=== PATIENT | female | born 1945 | race Caucasian/White ===

== ENCOUNTER 2018-06-10 00:09 | Inpatient (IN) | payer MEDICARE, MEDICAID, SELFPAY ==
[2018-06-10] VITALS (24 sets, daily range): BP systolic 96–164; BP diastolic 50–87; PULSE 68–96; RESP 16–20; TEMP 36.2–36.8; O2SAT 85–96; BMI 26.2
--- NOTE | 2018-06-10 00:20 | RAD_ITS ---
STUDY: X-RAY CHEST REASON FOR EXAM: Female, 72 years old. Status post fall. Right hip pain. TECHNIQUE: 2 AP portable views of the chest were obtained. The patient is rotated to the right on both views. COMPARISON: 05/07/2016. FINDINGS: There is mild chronic elevation of the right hemidiaphragm. There is a new focus of atelectasis or fibrosis in the right lung base. In general, the lungs are hyperexpanded, consistent with COPD.. There is no demonstrated pleural abnormality. Normal size heart. Normal mediastinum and jin. Normal visualized pulmonary arteries. There is atherosclerotic calcification of the aortic arch with tortuosity. There are multilevel degenerative changes of the visualized thoracic spine. Normal visualized ribs, clavicles, and shoulders. There is no demonstrated abnormality of the visualized soft tissue structures of the upper abdomen. RAD/Chest 1 View IMPRESSION: COPD. New focus of atelectasis or fibrosis overlying the right lung base. No demonstrated pulmonary airspace infiltrate. Electronically Signed: Luis Armando Mejias MD at 1:32 EST , Service support ,
--- NOTE | 2018-06-10 00:20 | RAD_ITS ---
STUDY: X-RAY - PELVIS AND RIGHT HIP REASON FOR EXAM: Female, 72 years old. Status post fall. Right hip pain. TECHNIQUE: 3 views of the pelvis and hip. COMPARISON: None. FINDINGS: There is a non-specific bowel gas pattern. Normal visualized soft tissue structures. Normal bilateral iliac wings, sacroiliac joints and visualized sacrum. Normal bilateral superior and inferior pubic rami. Normal pubic symphysis. Normal bilateral ischial tuberosities. There is an acute traumatic right subcapital femoral neck fracture with angulation convex anterolaterally. Otherwise normal femoral head. Normal acetabulum. Normal hip joint. RAD/HIP, UNI W/ Pelvis 2-3 Views IMPRESSION: Angulated right subcapital femoral neck fracture. No demonstrated pelvic fracture Electronically Signed: Luis Armando Mejias MD at 1:34 EST , Service support ,
[2018-06-10] MEDS: fentaNYL 100 MCG/2 ML Ampul 50 MCG IM (00:30)
[2018-06-10] MEDS: Ondansetron 4 MG/2 ML Vial IV (01:10)
[2018-06-10] MEDS: Morphine 4 MG/ML Syringe IV (01:10)
[2018-06-10 01:21] LABS: Absolute Lymphocyte Count 2.67 X10^3/ul (0.83-4.51); Absolute Neutrophil Count 6.8 X10^3/uL (2.0-7.7); Basophil# 0.04 X10^3/uL; Basophil% 0.4 % (0-1); Eosinophil# 0.13 X10^3/uL; Eosinophils% 1.2 % (0-5); Hematocrit 45.5 % (37-47); Hemoglobin 14.4 g/dl (12.0-15.0); Lymphocyte # 2.67 X10^3/ul (4.0); Mean Corp Hgb Conc 31.6 g/gl (32-36); Mean Corpuscular Hgb 32.1 pg (27.0-32.0); Mean Corpuscular Volume 101.6 fL (81-99); Mean Platelet Vol. 9.3 fl (6.2-12.0); Monocyte# 1.06 X10^3/uL; Monocyte% 9.9 % (0-10); Neutrophil # 6.76 X10^3/uL (2.7-7.7); Neutrophil % 63.3 % (47-70); POSITIVE COUNT NO; POSITIVE DIFFERENTIAL NO; POSITIVE MORPHOLOGY NO; Platelet Count 241 K/mm3 (150-450); RBC Distribution Width CV 13.2 % (11.6-14.6); RBC Distribution Width SD 49.2 fl (35.1-43.9); Red Blood Count 4.48 M/mm3 (4.2-5.4); White Blood Count 10.7 K/mm3 (4.4-11.0)
[2018-06-10 01:37] LABS: Anion Gap 9 (5-15); BUN 10 mg/dL (7-18); BUN/Creat Ratio 10.6 RATIO (10-20); Calcium,Total 8.4 mg/dL (8.5-10.1); Chloride 104 mmol/L (98-107); Creatinine, Serum 0.94 mg/dL (0.55-1.02); EST Glomerular Filtration Rate 62 mL/min (>60); Est Glom Filt Rate - Afr Amer 75 mL/min (>60); Estimated Creatinine Clearance 61.34 ml/min; Glucose 120 mg/dL (74-106); Potassium 3.8 mmol/L (3.5-5.1); Sodium Level 139 mmol/L (136-145)
--- NOTE | 2018-06-10 01:56 | ED.VISSUMM ---
- ER Visit Summary Date of Service: 06/10/18 Chief Complaint: Fall History of Present Illness: The patient is a [address] Olson. She reports that tonight she lost her balance and fell off the porch. States that she has pain in her right hip that is 10 out of 10 severity and she was unable to bear weight. No blow to the head or loss of consciousness. She is not on any blood thinners. No neck, back, shoulder, wrist, or left hip pain. Review of systems: General: No fever, chills, cold sweats. Cardiovascular: No chest pain, palpitations. Respiratory: No cough, shortness of breath, dyspnea on exertion. Gastrointestinal: No abdominal pain, nausea, vomiting, diarrhea, melena, or hematochezia. Genitourinary: No dysuria, frequency, hematuria. Skin: No rash. Neuro: No headache, numbness, weakness. Physical Examination: Vitals: Stable. Afebrile. Neck: No vertebral tenderness. Full ROM without difficulty. Cleared by NEXUS criteria. Back: No vertebral tenderness. General: A&O x 3. NAD. Cardiovascular exam: Regular rate and rhythm, no murmur, rub or gallop. Respiratory exam: Chest nontender. No crepitus. Clear to auscultation bilaterally. No wheezes or stridor. Abdominal exam: Soft, nontender, nondistended, normal bowel sounds. No pain in RUQ or LUQ specifically. No peritoneal signs. Extremity: Right leg is shortened and externally rotated. She has normal sensation to light touch in her foot. Test Results: X-ray shows a subcapital right hip fracture. Chest x-ray shows chronic changes. EKG is sinus at [address] changes. CBC is more for white count of 14 segment neutrophils 84. Chem-7 is more for BUN of 38, creatinine 1.53, glucose 135. Emergency Department Course and Treatment: Patient was initially treated with a dose of fentanyl IM. When the x-ray returned she had an IV placed was given morphine IV. She is resting comfortably. She did have a Beavers catheter placed for her comfort. Treatment Plan: The patient was discussed with Dr. Milton Cason and Dr. Shearer. She will be admitted to the hospital for further evaluation and treatment. Disposition: Admitted in improved condition. Impression: 1. Right hip fracture. This note was generated with [employer] dictation software. It may contain incorrect words, spelling, and punctuation that were not noted in review of the chart prior to signing ED Disposition - Plan for ED Patient: Chief Complaint: Fall Referrals: Mirna Olson MD [Primary Care Provider] -
--- NOTE | 2018-06-10 02:50 | PCM.HP.STD ---
History of Present Illness Date of Admission: 06/10/18 Chief Complaint: pain in right hip after fall The patient is a 72 year old F past medical history of COPD. She was admitted through the ED on 06/10/2018 with a complaint of right hip pain after sustained a fall. Patient states she was stepping off of porch and tripped and fell on her right hip. Subsequently noted severe pain and could not weight-bear or move the right hip. She was therefore brought to the ED. She denied any fever chills, cough or chest pain, shortness of breath, any diarrhea or vomiting. [] She does complain of abdominal pain which was mainly epigastric and sharp and she said was due to heartburn as she has had it in the past. In the ED, vitals were significant for blood pressure of 164/74 was otherwise normal. Chemistry was significant for calcium of 8.4. CBC showed macrocytosis and hypochromia but hemoglobin was 14.4.EKG done showed no acute ST changes and showed normal sinus rhythm. X-ray of the right hip showed acute right traumatic subcapital femoral neck fracture with angulation and no demonstrated pelvic fracture. She is been admitted to be managed for right hip fracture due to mechanical fall. She is to have surgery early tomorrow morning per orthopedic surgery. Past Medical History Past Medical History (Chronic Problems): Chronic Problems COPD (chronic obstructive pulmonary disease) (Chronic) Smoking addiction (Chronic) PVD (peripheral vascular disease) (Chronic) Allergies No Known Allergies Allergy (Verified 06/10/18 00:10) Home Medications: Ambulatory Orders Medication Instructions Recorded Albuterol Inhaler [Ventolin Hfa 2 puff INHALATION Q4H PRN PRN 08/17/16 (SP)] Aspirin [Aspirin, Baby] 81 mg PO DAILY@0800 08/17/16 Ibuprofen 200 mg PO Q6H PRN PRN 06/10/18 Surgical History: cholecystectomy Psychiatric History: No pertinent psych hx [employer] History: No pertinent [employer] history Lives: With Family Smoking Status: Former smoker - quit 3 weeks ago; was smoming ~ 1/2 pack daily for ~ 40 years Tobacco Use: Cigarettes Alcohol: Occasional Drugs: None - *Family History Maternal History Items: Heart Disease, Hypertension, - Review of Systems Constitutional: Denies: Chills, Fever, Weight Change HEENT: Denies: Head Aches, Sinus Congestion, Sinus Drainage Cardiovascular: Denies: Chest Pain, Chest Pressure, Chest Tightness, Heaviness, Light Headedness, Orthopnea, Palpitations Respiratory: Denies: Cough, Shortness of breath at rest, Sputum production Gastrointestinal: Reports: Abdominal Pain - epigastric pain, Melena. Denies: Diarrhea, Dyspepsia, Hematemesis, Nausea, Vomiting Genitourinary: Denies: Dysuria Musculoskeletal: Reports: Joint Pain - right hip pain. Denies: Arm Pain, Foot Pain, Hand Pain Skin: Denies: Rash, Wounds Neurological: Denies: Numbness, Tingling, Focal weakness Psychiatric: Denies: Anxiety, Depression, Homicidal Ideations, Suicidal Ideations Hematologic/ Lymphatic: Denies: Easy Bruising, Easy Bleeding VTE Information - Inpt Only VTE Present on Admission: No VTE Pharm Prophylaxis ordered?: Yes - Physical Exam General: Alert, Oriented x3, Cooperative, No apparent distress HEENT: Atraumatic, PERRLA, EOMI, Normocephalic Oral: Moist Mucosa Neck: Supple, No JVD, Negative Carotid Bruits Lungs: Clear to auscultation, Normal air movement, No rhonchi, No wheeze, No rales Cardiovascular: Regular rate, Regular Rhythm, Normal S1, Normal S2, No murmurs Abdomen: Bowel Sounds Present, Soft, Tender - mild epigastric tenderness, no guarding or rebound tenderness Extremities: - - RLE shortened, externally rotated. Unable to straighten the right leg due to severe pain Skin: No rashes, No breakdown Musculoskeletal: No Tenderness to Palpation of Joints or Extremities, Tenderness - pain on palpation over right hip Lymphatic: No Cervical, Supraclavicular, or Inguinal Adenopathy Neurological: Cranial nerves II-XII grossly intact, Neuro grossly intact Psych/Mental Status: Normal Affect, Appropriate, Alert and oriented to time, place, person, mood and affect Vital Signs Temp Pulse Resp BP Pulse Ox 97.7 F L 69 18 164/74 H 93 06/10/18 00:11 06/10/18 00:11 06/10/18 00:11 06/10/18 00:11 06/10/18 00:11 Oxygen Delivery Method Room Air Weight: 160 lb 11.472 oz Body Mass Index (BMI) 0.2 Finger Stick Blood Glucose 117 Laboratory Tests Past 24 Hrs 06/10/18 06/10/18 01:10 01:10 WBC 10.7 RBC 4.48 Hgb 14.4 Hct 45.5 MCV 101.6 H MCH 32.1 H MCHC 31.6 L RDW 13.2 RDW Differential 49.2 H Plt Count 241 MPV 9.3 Immature Gran % (Auto) 0.200 Neut % (Auto) 63.3 Lymph % (Auto) 25.0 [place] % (Auto) 9.9 Eos % (Auto) 1.2 Baso % (Auto) 0.4 Absolute Neuts (auto) 6.8 Absolute Lymphs (auto) 2.67 Total Counted Not Reportable Sodium 139 Potassium 3.8 Chloride 104 Carbon Dioxide 26.0 Anion Gap 9 BUN 10 Creatinine 0.94 Estim Creat Clear Calc 61.34 Est GFR (MDRD) Af Amer 75 Est GFR (MDRD) Non-Af 62 BUN/Creatinine Ratio 10.6 Glucose 120 H Calcium 8.4 L Diagnostic Data Chest X-Ray 06/10/18 00:20 IMPRESSION: COPD. New focus of atelectasis or fibrosis overlying the right lung base. No demonstrated pulmonary airspace infiltrate. Electronically Signed: Luis Armando Mejias MD at 1:32 EST , Service support , Hip/Pelvis X-Ray 06/10/18 00:20 IMPRESSION: Angulated right subcapital femoral neck fracture. No demonstrated pelvic fracture Electronically Signed: Luis Armando Mejias MD at 1:34 EST , Service support , Assessment/Plan All Active Problems Metabolic acidosis (Acute) Metabolic encephalopathy (Acute) 72-year-old female presenting with complaint of right hip pain after mechanical fall. 1. Acute right traumatic femoral neck fracture after mechanical fall tripped and fell off her porch XR showed acute traumatic right subcapital femoral neck fracture with angulation admit to [facility] surg orthopedic surgery consult keep NPO for surgery in the morning EKG showed no acute ST changes CXR showed no new focus of atelectasis or fibrosis in right lung base; otherwise normal IV toradol and morphine for pain hydrate with IVF NS RCRI index is 0, indicating 0.4% risk of major cardiac event with surgery. Patient can proceed for surgery with mild to moderate risk based on RCRI score oral vitamin D 100mg daily 2. Abdominal pain, due to reflux complains of epigastric pain which started this evening after admission says she has a history or GERD,and this is how it presents give IV PPI and IV morphine will check troponins and lipase 3. COPD: quit smoking 3 weeks ago; smoked ~ 1/2 pack daily for many years. Lungs clear to auscultation. CXR findings as under 1. Continue inhalers. Duonebs prn. incentive spirometry after surgery 4. History of peripheral vascular disease: on aspirin. 5. History of superficial thrombosis daughter says she thinks patient may have had a clot in her UE last year when she was admitted at [facility] after being transferred there from [facility] o/a of renal failure. Upon further enquiry, it appears it was a superficial thrombosis from IV insertion, as she says the use of the affected arm was restricted, and pateint was not given any prolonged anticoagulation for 3-6 months; she only received DVT prophylaxis whilst in [facility]. Clinisync records reviewed. No records of DVT in records. DVT prophylaxis: lovenox Code Visit Inpatient E&M: 12036 Init Hosp L3
--- NOTE | 2018-06-10 02:54 | HP.PCM_ITS ---
History of Present Illness Date of Admission: 06/10/18 Chief Complaint: pain in right hip after fall The patient is a 72 year old F past medical history of COPD. She was admitted through the ED on 06/10/2018 with a complaint of right hip pain after sustained a fall. Patient states she was stepping off of porch and tripped and fell on her right hip. Subsequently noted severe pain and could not weight-bear or move the right hip. She was therefore brought to the ED. She denied any fever chills, cough or chest pain, shortness of breath, any diarrhea or vomiting. [] She does complain of abdominal pain which was mainly epigastric and sharp and she said was due to heartburn as she has had it in the past. In the ED, vitals were significant for blood pressure of 164/74 was otherwise normal. Chemistry was significant for calcium of 8.4. CBC showed macrocytosis and hypochromia but hemoglobin was 14.4.EKG done showed no acute ST changes and showed normal sinus rhythm. X-ray of the right hip showed acute right traumatic subcapital femoral neck fracture with angulation and no demonstrated pelvic fracture. She is been admitted to be managed for right hip fracture due to mechanical fall. She is to have surgery early tomorrow morning per orthopedic surgery. Past Medical History Past Medical History (Chronic Problems): Chronic Problems COPD (chronic obstructive pulmonary disease) (Chronic) Smoking addiction (Chronic) PVD (peripheral vascular disease) (Chronic) Allergies No Known Allergies Allergy (Verified 06/10/18 00:10) Home Medications: Ambulatory Orders Medication Instructions Recorded Albuterol Inhaler [Ventolin Hfa 2 puff INHALATION Q4H PRN PRN 08/17/16 (SP)] Aspirin [Aspirin, Baby] 81 mg PO DAILY@0800 08/17/16 Ibuprofen 200 mg PO Q6H PRN PRN 06/10/18 Surgical History: cholecystectomy Psychiatric History: No pertinent psych hx [employer] History: No pertinent [employer] history Lives: With Family Smoking Status: Former smoker - quit 3 weeks ago; was smoming ~ 1/2 pack daily for ~ 40 years Tobacco Use: Cigarettes Alcohol: Occasional Drugs: None - *Family History Maternal History Items: Heart Disease, Hypertension, - Review of Systems Constitutional: Denies: Chills, Fever, Weight Change HEENT: Denies: Head Aches, Sinus Congestion, Sinus Drainage Cardiovascular: Denies: Chest Pain, Chest Pressure, Chest Tightness, Heaviness, Light Headedness, Orthopnea, Palpitations Respiratory: Denies: Cough, Shortness of breath at rest, Sputum production Gastrointestinal: Reports: Abdominal Pain - epigastric pain, Melena. Denies: Diarrhea, Dyspepsia, Hematemesis, Nausea, Vomiting Genitourinary: Denies: Dysuria Musculoskeletal: Reports: Joint Pain - right hip pain. Denies: Arm Pain, Foot Pain, Hand Pain Skin: Denies: Rash, Wounds Neurological: Denies: Numbness, Tingling, Focal weakness Psychiatric: Denies: Anxiety, Depression, Homicidal Ideations, Suicidal Ideations Hematologic/ Lymphatic: Denies: Easy Bruising, Easy Bleeding VTE Information - Inpt Only VTE Present on Admission: No VTE Pharm Prophylaxis ordered?: Yes - Physical Exam General: Alert, Oriented x3, Cooperative, No apparent distress HEENT: Atraumatic, PERRLA, EOMI, Normocephalic Oral: Moist Mucosa Neck: Supple, No JVD, Negative Carotid Bruits Lungs: Clear to auscultation, Normal air movement, No rhonchi, No wheeze, No rales Cardiovascular: Regular rate, Regular Rhythm, Normal S1, Normal S2, No murmurs Abdomen: Bowel Sounds Present, Soft, Tender - mild epigastric tenderness, no guarding or rebound tenderness Extremities: - - RLE shortened, externally rotated. Unable to straighten the right leg due to severe pain Skin: No rashes, No breakdown Musculoskeletal: No Tenderness to Palpation of Joints or Extremities, Tenderness - pain on palpation over right hip Lymphatic: No Cervical, Supraclavicular, or Inguinal Adenopathy Neurological: Cranial nerves II-XII grossly intact, Neuro grossly intact Psych/Mental Status: Normal Affect, Appropriate, Alert and oriented to time, place, person, mood and affect Vital Signs Temp Pulse Resp BP Pulse Ox 97.7 F L 69 18 164/74 H 93 06/10/18 00:11 06/10/18 00:11 06/10/18 00:11 06/10/18 00:11 06/10/18 00:11 Oxygen Delivery Method Room Air Weight: 160 lb 11.472 oz Body Mass Index (BMI) 0.2 Finger Stick Blood Glucose 117 Laboratory Tests Past 24 Hrs 06/10/18 06/10/18 01:10 01:10 WBC 10.7 RBC 4.48 Hgb 14.4 Hct 45.5 MCV 101.6 H MCH 32.1 H MCHC 31.6 L RDW 13.2 RDW Differential 49.2 H Plt Count 241 MPV 9.3 Immature Gran % (Auto) 0.200 Neut % (Auto) 63.3 Lymph % (Auto) 25.0 [place] % (Auto) 9.9 Eos % (Auto) 1.2 Baso % (Auto) 0.4 Absolute Neuts (auto) 6.8 Absolute Lymphs (auto) 2.67 Total Counted Not Reportable Sodium 139 Potassium 3.8 Chloride 104 Carbon Dioxide 26.0 Anion Gap 9 BUN 10 Creatinine 0.94 Estim Creat Clear Calc 61.34 Est GFR (MDRD) Af Amer 75 Est GFR (MDRD) Non-Af 62 BUN/Creatinine Ratio 10.6 Glucose 120 H Calcium 8.4 L Diagnostic Data Chest X-Ray 06/10/18 00:20 IMPRESSION: COPD. New focus of atelectasis or fibrosis overlying the right lung base. No demonstrated pulmonary airspace infiltrate. Electronically Signed: Luis Armando Mejias MD at 1:32 EST , Service support , Hip/Pelvis X-Ray 06/10/18 00:20 IMPRESSION: Angulated right subcapital femoral neck fracture. No demonstrated pelvic fracture Electronically Signed: Luis Armando Mejias MD at 1:34 EST , Service support , Assessment/Plan All Active Problems Metabolic acidosis (Acute) Metabolic encephalopathy (Acute) 72-year-old female presenting with complaint of right hip pain after mechanical fall. 1. Acute right traumatic femoral neck fracture after mechanical fall * tripped and fell off her porch * XR showed acute traumatic right subcapital femoral neck fracture with angulation * admit to [facility] * orthopedic surgery consult * keep NPO for surgery in the morning * EKG showed no acute ST changes * CXR showed no new focus of atelectasis or fibrosis in right lung base; otherwise normal * IV toradol and morphine for pain * hydrate with IVF NS * RCRI index is 0, indicating 0.4% risk of major cardiac event with surgery. * Patient can proceed for surgery with mild to moderate risk based on RCRI score * oral vitamin D 100mg daily * 2. Abdominal pain, due to reflux * complains of epigastric pain which started this evening after admission * says she has a history or GERD,and this is how it presents * give IV PPI and IV morphine * will check troponins and lipase * 3. COPD: * quit smoking 3 weeks ago; smoked ~ 1/2 pack daily for many years. * Lungs clear to auscultation. * CXR findings as under 1. * Continue inhalers. Duonebs prn. * incentive spirometry after surgery 4. History of peripheral vascular disease: on aspirin. 5. History of superficial thrombosis * daughter says she thinks patient may have had a clot in her UE last year when she was admitted at [facility] after being transferred there from [facility] o/a of renal failure. Upon further enquiry, it appears it was a superficial thrombosis from IV insertion, as she says the use of the affected arm was restricted, and pateint was not given any prolonged anticoagulation for 3-6 months; she only received DVT prophylaxis whilst in [facility]. * [facility] records reviewed. No records of DVT in records. * DVT prophylaxis: lovenox Code Visit Inpatient E&M: 23067 Init Hosp L3
[2018-06-10] MEDS: 0.9% Normal Saline 1,000 ML 100 ML IV ×2 (03:56→12:37)
[2018-06-10] MEDS: Morphine 2 MG/ML Syringe IV (05:55)
[2018-06-10] MEDS: 0.9% NaCl Peripheral Flush Adult/Peds IV ×2 (05:55→05:56)
[2018-06-10] MEDS: Ipratropium/Albuterol Sulfate 3 ML AMPUL.NEB INHALATION ×4 (06:31→23:51)
[2018-06-10 07:03] LABS: Absolute Lymphocyte Count 1.19 X10^3/ul (0.83-4.51); Absolute Neutrophil Count 7.9 X10^3/uL (2.0-7.7); Basophil# 0.01 X10^3/uL; Basophil% 0.1 % (0-1); Eosinophil# 0.01 X10^3/uL; Eosinophils% 0.1 % (0-5); Hematocrit 45.7 % (37-47); Hemoglobin 14.3 g/dl (12.0-15.0); Lymphocyte # 1.19 X10^3/ul (4.0); Lymphocyte % 11.6 % (19-41); Mean Corp Hgb Conc 31.3 g/gl (32-36); Mean Corpuscular Volume 102.2 fL (81-99); Mean Platelet Vol. 9.3 fl (6.2-12.0); Monocyte# 1.07 X10^3/uL; Monocyte% 10.4 % (0-10); Neutrophil # 7.94 X10^3/uL (2.7-7.7); Neutrophil % 77.5 % (47-70); Platelet Count 254 K/mm3 (150-450); RBC Distribution Width CV 13.2 % (11.6-14.6); RBC Distribution Width SD 49.9 fl (35.1-43.9); Red Blood Count 4.47 M/mm3 (4.2-5.4); White Blood Count 10.3 K/mm3 (4.4-11.0)
[2018-06-10 07:13] LABS: POSITIVE COUNT NO; POSITIVE DIFFERENTIAL NO; POSITIVE MORPHOLOGY NO
[2018-06-10 07:31] LABS: Anion Gap 11 (5-15); BUN 10 mg/dL (7-18); BUN/Creat Ratio 10.9 RATIO (10-20); Calcium,Total 8.1 mg/dL (8.5-10.1); Chloride 106 mmol/L (98-107); Creatinine, Serum 0.92 mg/dL (0.55-1.02); EST Glomerular Filtration Rate 63 mL/min (>60); Est Glom Filt Rate - Afr Amer 77 mL/min (>60); Estimated Creatinine Clearance 47.03 ml/min; Glucose 109 mg/dL (74-106); Potassium 3.9 mmol/L (3.5-5.1); Sodium Level 140 mmol/L (136-145)
--- NOTE | 2018-06-10 07:33 | PCM.PN.BLA ---
Progress Note 72-year-old female presenting with complaint of right hip pain after mechanical fall. Imaging studies demonstrated angulated right subcapital femoral neck fracture and no demonstrated pelvic fracture. Patient admitted to regular nursing floor orthopedic surgery Patient has been seen and examined. Her initial assessment including history and physical, diagnostic data and management orders reviewed will follow. Patient was also discussed with Dr. Milton Cason orthopedic surgery plans for patient undergo ORIF on 06/10/2018 Active Medications Albuterol Sulfate (Ventolin Aerosols) 2.5 mg INHALATION Q4H PRN PRN Albuterol/Ipratropium (Duoneb) 3 ml INHALATION Q6HWA.RT SONY Last Admin: 06/10/18 06:31 Dose: 3 ml Aspirin (Aspirin, Baby) 81 mg PO DAILY@0800 [facility] Last Admin: 06/10/18 07:21 Dose: Not Given Sodium Chloride 68.4 ml/Ropivacaine 20 ml/ Epinephrine HCl 0.6 mg/ Morphine Sulfate 5 mg/ Ketorolac Tromethamine 30 mg 0 ml OPERA.SITE X1 ONE Stop: 06/10/18 08:31 Enoxaparin Sodium (Lovenox) 40 mg SC DAILY@1000 [facility] Last Admin: 06/10/18 07:21 Dose: Not Given Sodium Chloride () 1,000 mls @ 100 mls/hr IV .Q10H SONY Stop: 06/10/18 23:28 Last Admin: 06/10/18 03:56 Dose: 100 mls/hr Pantoprazole Sodium 40 mg/ (Sodium Chloride) 110 mls @ 330 mls/hr IV Q24 [facility] Cefazolin Sodium 2 gm/ Sodium (Chloride) 120 mls @ 240 mls/hr IV PREOP ONE Stop: 06/10/18 08:59 Magnesium Hydroxide (Milk Of Magnesia) 30 ml PO DAILY PRN PRN PRN Reason: Constipation Morphine Sulfate () 2 mg IV Q3H PRN PRN PRN Reason: SEVERE PAIN (6-10/10) Last Admin: 06/10/18 05:55 Dose: 2 mg Sodium Chloride () 5 - 15 ml IV UD PRN PRN Reason: SALINE FLUSH Last Admin: 06/10/18 05:56 Dose: 10 ml Clinical Impression(s) from Imaging Studies Chest X-Ray 06/10/18 00:20 IMPRESSION: COPD. New focus of atelectasis or fibrosis overlying the right lung base. No demonstrated pulmonary airspace infiltrate. Electronically Signed: Luis Armando Mejias MD at 1:32 EST , Service support , Hip/Pelvis X-Ray 06/10/18 00:20 IMPRESSION: Angulated right subcapital femoral neck fracture. No demonstrated pelvic fracture Electronically Signed: Luis Armando Mejias MD at 1:34 EST , Service support ,
[2018-06-10] MEDS: Cefazolin 1 GM/50 ML BAG IV ×3 (08:30→22:06)
--- NOTE | 2018-06-10 08:30 | FEM_PTH ---
PATIENT: GUY CARVALHO LOC: MS3 U#:[id number] AGE/SX: 72/F ROOM: MS308 RE06/10/[address]: Dr. Melany Carson MD : 1945 BED: 1 DIS: 06/14/2018 SPEC #: [id number] RECD: 06/13/18 09:17 STATUS: EPIFANIO REQ #: [id number] MÓNICA: 06/10/18 08:[address]: Milton Cason DEPT: SURGICAL PATHOLOGY RECD BY: Makrell Vaz ENTERED: 06/13/18 09:26 SP TYPE: FEM HEAD OTHR DR: MD Dr. Mirna Tan MD Dr. Nana Yaa Koram, MD Dr. Rodney Miller, MD Tissues: Femoral region, NOS Procedures: Decalcification bone/plaque Surgery Specimen Level IV Comments: @ Ordering doctor for DEC edited from to [email or web address] Lujan by YAKELIN at 06/13/18 1408 @ Ordering doctor for SUV edited from to @ by YAKELIN at 06/13/18 1408 @ Submitting doctor edited from to @ by YAKELIN at 06/13/18 1408 HEADER OPERATION: Right hip hemiarthroplasty PRE-OP DIAGNOSIS: Right femoral neck fracture TISSUE SUBMITTED: Right hip bone and soft tissue MICROSCOPIC DIAGNOSIS Bone and soft tissue of right hip, total hip resection: Consistent with organizing fracture callus. JUANY:jamal 06/20/18 MICROSCOPIC DESCRIPTION Slides are reviewed. GROSS DESCRIPTION Received is one container labeled with the patient's name and designated right hip bone and tissue. The specimen consists of a alanis femoral head measuring 4.5 x 4.5 x 4 cm. The articular surface is smooth. The nonarticular surface is irregular and hemorrhagic. Also present in the specimen container are multiple detached pieces of bone measuring in aggregate 6 x 6 x 1.8 cm. No soft tissue is identified. [employer] sections are submitted in three cassettes as follows: 1 & 2 - detached pieces of bone after decalcification, 3 - femoral head after decalcification. / SHABBIR:jamal 06/13/18 TC:5 CPT: 70352, 14022
[2018-06-10] MEDS: Cefazolin 2 GM in 0.9% Normal Saline 100 ML IV (08:31)
--- NOTE | 2018-06-10 10:29 | PCM.CONS.GEN ---
Reason for Consult Date of Consultation: 06/10/18 History of Present Illness: The patient is a 72 year old female that fell yesterday at home off a cement porch injuring her right hip. Right hip was fine before. Denies pre-existing right hip pain. She does not use a cane crutch or walker. She states she is not very active. She is retired. Driving is very important to her. She denies head injury. Denies chest pain or shortness of breath. She does have COPD. She admits to smoking for 50 years. Approximately half pack per day. She states she quit smoking about 2 weeks ago. She has quit before and then resumed smoking. She had a revascularization procedure to her right lower extremity about 3 years ago. Patient was brought to [facility] with a right hip fracture, admitted to the hospitalist service, orthopedics appropriately consulted [] Past Medical History Past Medical History (Chronic Problems): Chronic Problems COPD (chronic obstructive pulmonary disease) (Chronic) Smoking addiction (Chronic) PVD (peripheral vascular disease) (Chronic) Allergies No Known Allergies Allergy (Verified 06/10/18 00:10) Home Medications: Ambulatory Orders Medication Instructions Recorded Albuterol Inhaler [Ventolin Hfa 2 puff INHALATION Q4H PRN PRN 08/17/16 (SP)] Aspirin [Aspirin, Baby] 81 mg PO DAILY@0800 08/17/16 Ibuprofen 200 mg PO Q6H PRN PRN 06/10/18 Surgical History: cholecystectomy - R LE revasc surgery Psychiatric History: No pertinent psych hx 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 Right lower extremity has pain at the hip. Right dorsalis pedis pulse is dopplerable. Left posterior tibial pulse is dopplerable. She is able to actively plantarflex and dorsiflex toes and ankles. No calf pain or swelling. Negative Homans sign. No pain at the left hip. No pain at the knees. X-rays AP pelvis AP and lateral right hip shows a femoral neck fracture, completely displaced. Laboratory work and vital signs reviewed. Urine cloudy and catheter. UA and culture is ordered - Physical Exam Vital Signs Temp Pulse Resp BP Pulse Ox 98.3 F 88 18 138/75 H 92 06/10/18 08:10 06/10/18 08:10 06/10/18 08:10 06/10/18 08:10 06/10/18 08:11 Oxygen Flow Rate (L/min) 2 Oxygen Delivery Method Nasal Cannula Weight: 69.3 kg Body Mass Index (BMI) 26.2 Finger Stick Blood Glucose 117 Intake and Output for Last 24 Hours 06/08/18 06/09/18 06/10/18 23:59 23:59 23:59 Intake Total 201 / 201 Output Total 300 / 300 Balance -99 / -99 Laboratory Tests Past 24 Hrs 06/10/18 06/10/18 06/10/18 01:10 01:10 05:43 WBC 10.7 RBC 4.48 Hgb 14.4 Hct 45.5 MCV 101.6 H MCH 32.1 H MCHC 31.6 L RDW 13.2 RDW Differential 49.2 H Plt Count 241 MPV 9.3 Immature Gran % (Auto) 0.200 Neut % (Auto) 63.3 Lymph % (Auto) 25.0 [place] % (Auto) 9.9 Eos % (Auto) 1.2 Baso % (Auto) 0.4 Absolute Neuts (auto) 6.8 Absolute Lymphs (auto) 2.67 Total Counted Not Reportable Sodium 139 140 Potassium 3.8 3.9 Chloride 104 106 Carbon Dioxide 26.0 23.0 Anion Gap 9 11 BUN 10 10 Creatinine 0.94 0.92 Estim Creat Clear Calc 61.34 47.03 Est GFR (MDRD) Af Amer 75 77 Est GFR (MDRD) Non-Af 62 63 BUN/Creatinine Ratio 10.6 10.9 Glucose 120 H 109 H Calcium 8.4 L 8.1 L Blood Type Antibody Screen 06/10/18 06/10/18 05:43 06:15 WBC 10.3 RBC 4.47 Hgb 14.3 Hct 45.7 MCV 102.2 H MCH 32.0 MCHC 31.3 L RDW 13.2 RDW Differential 49.9 H Plt Count 254 MPV 9.3 Immature Gran % (Auto) 0.300 Neut % (Auto) 77.5 H Lymph % (Auto) 11.6 L [place] % (Auto) 10.4 H Eos % (Auto) 0.1 Baso % (Auto) 0.1 Absolute Neuts (auto) 7.9 H Absolute Lymphs (auto) 1.19 Total Counted Not Reportable Sodium Potassium Chloride Carbon Dioxide Anion Gap BUN Creatinine Estim Creat Clear Calc Est GFR (MDRD) Af Amer Est GFR (MDRD) Non-Af BUN/Creatinine Ratio Glucose Calcium Blood Type B POSITIVE Antibody Screen NEGATIVE Assessment/Plan All Active Problems Metabolic acidosis (Acute) Metabolic encephalopathy (Acute) Right hip displaced femoral neck fracture surgical and nonsurgical options discussed. Possibility of total hip replacement versus hemiarthroplasty discussed. Risks benefits and alternative procedures of each procedure discussed at length. Patient preferred a hemiarthroplasty. I think that is reasonable. I explained a total hip replacement may be more likely to get complete pain relief, but is also a bigger procedure with higher blood loss, and possibly higher complication rate. Risk of surgery including but not limited to from operative or postoperative complications. Risk of anesthetic complications such as heart attacks, strokes, seizures, or . Risk of infections. Risk of damage to nerves arteries tendons. Risk of inadvertent fractures or dislocations. Risk of bone or wound healing complications. Possibility of nonunion malunion pain stiffness weakness. Possible need for further surgery such as hardware removal. Risk of DVT PE and other potential complications could lead to or disability explained. No guarantees were stated or implied. All of their questions were answered. Appropriate informed consent was obtained and signed for surgical intervention. This was discussed with her daughter Lucia she is aware of and agrees with our treatment plan We will plan on perioperative Ancef. Tranexamic acid. CHEIKH rodrigez SCDs, Lovenox and aspirin to be started postoperatively. Multiple medical problems including COPD, smoking history, previous revascularization procedure right leg with poor pulses
--- NOTE | 2018-06-10 10:38 | PCM.OP.BLANK ---
Operative Report Date of Procedure: 06/10/18 Preoperative diagnosis: Right hip displaced femoral neck fracture Postoperative diagnosis: Same Operation: Right hip cemented hemiarthroplasty Surgeon: Dr. Milton Cason MD Burner Operator: Maren Pedroza PA-C Anesthesia: spinal Anesthesiologist; Dr. Quan Special medications: IV [Ancef], IV Tranexamic acid IV x 2 Indications for surgery : Patient is a 72 -year-old [male] that fell yesterday fracturing his right hip. Appropriate informed consent was obtained and signed. Appropriate medical workup was performed preoperatively and patient was deemed safe for surgery by the anesthesia department administrative office assistantANA MARIA was utilized throughout the entire procedure. They were vital in helping with patient positioning, holding of retractors, exposing the tissues adequately for safe completion of the procedure including cutting of the bone, helping sports activities foul judge appropriate alignment and sizing of the components, implantation of the components, as well as wound closure, bandage application, and safe patient transfer. Without surgical assist, physician nurseryman assistant, surgical time would have been significantly increased, and surgical outcome would have been less optimal. Operative findings: Patient displaced comminuted right femoral neck fracture. We used a Judith Accolade stem size #5 cemented. Bipolar femoral head size 46 mm femoral head with a -3 mm neck length. This reproduced there anatomy nicely. Clinically good leg lengths were noted. Good hip stability through range of motion with no undue pistoning. Standard wound closure in layers, followed by nick, followed by Mepilex dressing Details of procedure: Patient was taken to the operating room and transferred to the operating table. Given appropriate anesthetic agent by that department. Patient was then rolled into a lateral decubitus position with the involved painful hip up in the air. Appropriate timeouts had been performed. Hip had been appropriately marked with my initials. Padded anterior and posterior position was utilized. Axillary roll placed. CHEIKH hose and SCDs on the nonoperative limb utilized throughout the procedure. Operative lower extremity was prepped padded and draped in the usual orthopedic sterile fashion for the procedure. I injected the pain relieving solution in the standard sterile technique of the soft tissues of the hip carefully. Incision was made curving over the tip of the greater trochanter posteriorly. Full thickness skin flaps are raised down on the fascia moises. Fascia moises was opened in length with our incision. Charnley self-retaining hip retractor was carefully placed by the surgeon. Leg was appropriately rotated by the nurseryman assistant. Retractor was used to lift the abductors anteriorly to visualize the piriformis tendon and external rotators. Piriformis tendon and external rotators released off the greater trochanter with the Bovie. Tagging suture was placed in each of these separately. We then split the tissue superior to the piriformis tendon through capsule and onto the pelvis. Acetabular labrum was preserved. Retractors were carefully placed around the femoral neck. Displaced unstable femoral neck fracture identified. cutting guide was utilized to map out the proposed cut approximately 1 fingerbreadth above the lesser trochanter. This femoral neck cut was carried out with a saw. Fractured femoral head removed and measured and inspected. Femoral head was measured. Appropriate trial was utilized. A proximal femoral elevator utilized. We used a sharp awl entering down inside the bone of the proximal femur. Utilized the [employer] cutting osteotome the proximal lateral greater trochanteric region. The fragment removed. Broaching was then done from the smallest broach, upto the appropriate size. Good stability was confirmed. We then trialed the construct with a standard neck length and appropriate sized femoral head. We were happy with the construct. Good stability to flexion, rotation. At this point trials removed. 2 full batches of bone cement were mixed. 2 sponges were placed in the acetabulum we prepared the canal with brushing. Cement restrictor was placed down to the appropriate depth. It was thoroughly irrigated clean and dry. When the cement was as the appropriate texture, we pressurized cement down in the femoral canal. The appropriate size stem then hammered into the proximal femur and seated down to a similar position as the trial had. Excess bone cement removed. Stem was held still while cement fully hardened. Pain relieving solution was injected while this was occurring. The cement was fully hardened, sponges were removed from the acetabulum. We now again trialed and appropriate neck length decided upon. It was then opened. Now impacted the appropriate sized bipolar femoral head, neck construct onto the clean dried trunion. Was noted to be stable. Hip was inspected, and joint was reduced for a final time. Good hip stability and leg lengths noted. This was then irrigated with saline and cleaned. Next the remainder of the pain relieving solution was injected carefully throughout the soft tissues of the hip joint. Closure was carried out with a combination of #1 Vicryl repairing the hip capsule as well as piriformis tendon and external rotators to bone, running #2 strata fix in the fascia moises, followed by mid layer #1 Vicryl with #1 strata fix running. Next running 0 strata fix, followed by skin nick, Xeroform, Mepilex dressing. We placed CHEIKH hose and SCD on the operative leg. Patient awoken from the anesthetic and transferred back to room bed in recovery room in satisfactory condition. Patient will be admitted to the hospital. Hospitalist service will continue to manage the medical issues. Hopeful discharge to home or ECF in 2-3 days. This note was generated with [employer] dictation software. It may contain incorrect words, spelling, and punctuation that were not noted in checking the note before signing.
--- NOTE | 2018-06-10 10:41 | OP.PCM_ITS ---
Operative Report Date of Procedure: 06/10/18 Preoperative diagnosis: Right hip displaced femoral neck fracture Postoperative diagnosis: Same Operation: Right hip cemented hemiarthroplasty Surgeon: Dr. Milton Cason MD Powertrain Control Systems Engineer: Maren Pedroza PA-C Anesthesia: spinal Anesthesiologist; Dr. Quan Special medications: IV [Ancef], IV Tranexamic acid IV x 2 Indications for surgery : Patient is a 72 -year-old [male] that fell yesterday fracturing his right hip. Appropriate informed consent was obtained and signed. Appropriate medical workup was performed preoperatively and patient was deemed safe for surgery by the anesthesia department hotel administrative assistantANA MARIA was utilized throughout the entire procedure. They were vital in helping with patient positioning, holding of retractors, exposing the tissues adequately for safe completion of the procedure including cutting of the bone, helping senior director insight appropriate alignment and sizing of the components, implantation of the components, as well as wound closure, bandage application, and safe patient transfer. Without surgical scrub technologist, physician trust manager assistant, surgical time would have been significantly increased, and surgical outcome would have been less optimal. Operative findings: Patient displaced comminuted right femoral neck fracture. We used a Judith Accolade stem size #5 cemented. Bipolar femoral head size 46 mm femoral head with a -3 mm neck length. This reproduced there anatomy nicely. Clinically good leg lengths were noted. Good hip stability through range of motion with no undue pistoning. Standard wound closure in layers, followed by nick, followed by Mepilex dressing Details of procedure: Patient was taken to the operating room and transferred to the operating table. Given appropriate anesthetic agent by that department. Patient was then rolled into a lateral decubitus position with the involved painful hip up in the air. Appropriate timeouts had been performed. Hip had been appropriately marked with my initials. Padded anterior and posterior position was utilized. Axillary roll placed. CHEIKH hose and SCDs on the nonopera tive limb utilized throughout the procedure. Operative lower extremity was prepped padded and draped in the usual orthopedic sterile fashion for the procedure. I injected the pain relieving solution in the standard sterile technique of the soft tissues of the hip carefully. Incision was made curving over the tip of the greater trochanter posteriorly. Full thickness skin flaps are raised down on the fascia moises. Fascia moises was opened in length with our incision. Charnley self-retaining hip retractor was carefully placed by the surgeon. Leg was appropriately rotated by the trust manager assistant. Retractor was used to lift the abductors anteriorly to visualize the piriformis tendon and external rotators. Piriformis tendon and external rotators released off the greater trochanter with the Bovie. Tagging suture was placed in each of these separately. We then split the tissue superior to the piriformis tendon through capsule and onto the pelvis. Acetabular labrum was preserved. Retractors were carefully placed around the femoral neck. Displaced unstable femoral neck fracture identified. cutting guide was utilized to map out the proposed cut approximately 1 fingerbreadth above the lesser trochanter. This femoral neck cut was carried out with a saw. Fractured femoral head removed and measured and inspected. Femoral head was measured. Appropriate trial was utilized. A proximal femoral elevator utilized. We used a sharp awl entering down inside the bone of the proximal femur. Utilized the [employer] cutting osteotome the proximal lateral greater trochanteric region. The fragment removed. Broaching was then done from the smallest broach, upto the appropriate size. Good stability was confirmed. We then trialed the construct with a standard neck length and appropriate sized femoral head. We were happy with the construct. Good stability to flexion, rotation. At this point trials removed. 2 full batches of bone cement were mixed. 2 sponges were placed in the acetabulum we prepared the canal with brushing. Cement restrictor was placed down to the appropriate depth. It was thoroughly irrigated clean and dry. When the cement was as the appropriate texture, we pressurized cement down in the femoral canal. The appropriate size stem then hammered into the proximal femur and seated down to a similar position as the trial had. Excess bone cement removed. Stem was held still while cement fully hardened. Pain relieving solution was injected while this was occurring. The cement was fully hardened, sponges were removed from the acetabulum. We now again trialed and appropriate neck length decided upon. It was then opened. Now impacted the appropriate sized bipolar femoral head, neck construct onto the clean dried trunion. Was noted to be stable. Hip was inspected, and joint was reduced for a final time. Good hip stability and leg lengths noted. This was then irrigated with saline and cleaned. Next the remainder of the pain relieving solution was injected carefully throughout the soft tissues of the hip joint. Closure was carried out with a combination of #1 Vicryl repairing the hip capsule as well as piriformis tendon and external rotators to bone, running #2 strata fix in the fascia moises, followed by mid layer #1 Vicryl with #1 strata fix running. Next running 0 strata fix, followed by skin nick, Xeroform, Mepilex dressing. We placed CHEIKH hose and SCD on the operative leg. Patient awoken from the anesthetic and transferred back to room bed in recovery room in satisfactory condition. Patient will be admitted to the hospital. Hospitalist service will continue to manage the medical issues. Hopeful discharge to home or ECF in 2-3 days. This note was generated with [employer] dictation software. It may contain inc orrect words, spelling, and punctuation that were not noted in checking the note before signing.
--- NOTE | 2018-06-10 11:10 | RAD_ITS ---
STUDY: X-RAY - RIGHT HIP REASON FOR EXAM: Female, 72 years old. Postoperative TECHNIQUE: 2 views of the hip. COMPARISON: Plain films right hip earlier today FINDINGS: Status post right hip replacement. No evidence of acute hardware failure or loosening. No fracture or dislocation. Expected postoperative changes on the right. Remainder is within normal limits and unchanged RAD/Hip Min 2 Views (Portable) IMPRESSION: Status post right hip arthroplasty due to femoral neck transection Electronically Signed: Josh Emmanuel DO at 11:41 EST Tel , Service support ,
[2018-06-10] MEDS: Scopolamine 1mg/72hr Patch 1 PATCH TD (11:50)
[2018-06-10 13:59] LABS: Bacteria 0 SEEN /hpf (None Seen); Color, Urine Yellow (Yellow); Glucose, Dipstick Normal (Normal); Ketone-Dipstick Negative (Negative); Leukocyte Esterase-Dipstick 500 /ul (Negative); Mucous, Urine 0 SEEN /hpf (<or=2+); Nitrite-Dipstick Negative (Negative); Occult Blood-Urine 150 /ul (Negative); Protein-Dipstick 30 mg/dl (Negative); Squamous Epithelial Cells - UA 0 SEEN /hpf (5-10); Urine Clarity Clear (Clear); Urine Urobilinogen 4 mg/dl (Normal)
[2018-06-10 14:00] LABS: Urine Bilirubin Dipstick 1 mg/dL (Negative)
[2018-06-10] MEDS: Acetaminophen 500 MG Tablet 1000 MG PO ×2 (14:01→22:09)
[2018-06-10 14:04] LABS: Red Blood Cells-Urine 0-5 SEEN /hpf (0-5)
[2018-06-10 14:05] LABS: Amorphous Sediment 1+; White Blood Cells 0-5 SEEN /hpf (0-5)
[2018-06-10] MEDS: oxyCODONE 5 MG Tablet PO (16:35)
[2018-06-10] MEDS: Senna/Docusate Sodium 1 Tablet 2 TABLET PO (22:10)
[2018-06-11] VITALS (13 sets, daily range): BP systolic 124–142; BP diastolic 58–65; PULSE 73–103; RESP 16–20; TEMP 36.4–36.8; O2SAT 93–95
[2018-06-11] MEDS: 0.9% Normal Saline 1,000 ML 120 ML IV ×2 (00:03→09:01)
[2018-06-11] MEDS: oxyCODONE 5 MG Tablet PO ×3 (00:07→19:23)
[2018-06-11] MEDS: Cefazolin 1 GM/50 ML BAG IV (02:58)
[2018-06-11] MEDS: Acetaminophen 500 MG Tablet 1000 MG PO ×3 (05:56→21:39)
[2018-06-11 06:34] LABS: Hematocrit 38.2 % (37-47); Mean Corp Hgb Conc 31.4 g/gl (32-36); Mean Corpuscular Hgb 32.7 pg (27.0-32.0); Mean Corpuscular Volume 104.1 fL (81-99); Mean Platelet Vol. 8.8 fl (6.2-12.0); Platelet Count 167 K/mm3 (150-450); RBC Distribution Width CV 13.3 % (11.6-14.6); RBC Distribution Width SD 50.4 fl (35.1-43.9); Red Blood Count 3.67 M/mm3 (4.2-5.4); White Blood Count 9.3 K/mm3 (4.4-11.0)
[2018-06-11 06:41] LABS: Scan Indicated on CBC? Y/N NO
[2018-06-11 06:45] LABS: Anion Gap 6 (5-15); BUN 10 mg/dL (7-18); BUN/Creat Ratio 13.1 RATIO (10-20); Calcium,Total 6.9 mg/dL (8.5-10.1); Chloride 111 mmol/L (98-107); Creatinine, Serum 0.76 mg/dL (0.55-1.02); EST Glomerular Filtration Rate 79 mL/min (>60); Est Glom Filt Rate - Afr Amer 95 mL/min (>60); Estimated Creatinine Clearance 43.27 ml/min; Glucose 82 mg/dL (74-106); Potassium 3.7 mmol/L (3.5-5.1); Sodium Level 138 mmol/L (136-145)
[2018-06-11] MEDS: Ipratropium/Albuterol Sulfate 3 ML AMPUL.NEB INHALATION ×3 (07:21→19:24)
--- NOTE | 2018-06-11 08:38 | PN_ITS ---
Subjective: Patient was seen and examined. She denied any pain while sitting. Has a cooling mat to the right hip. Denied any shortness of breath or dizziness. She complains about not being able to use her inhaler and rather using a nebulizer treatment. I reassured her that these were the same. On oxygen at home, currently on 3 L of oxygen. Vitals/I&O's: Vital Signs Temp Pulse Resp BP Pulse Ox 98.2 F 94 16 142/63 H 94 06/11/18 08:28 06/11/18 08:28 06/11/18 08:28 06/11/18 08:28 06/11/18 08:28 Oxygen Flow Rate (L/min) 3 Oxygen Delivery Method Nasal Cannula Weight: 69.3 kg Body Mass Index (BMI) 26.2 Finger Stick Blood Glucose 117 Intake and Output for Last 24 Hours 06/09/18 06/10/18 06/11/18 23:59 23:59 23:59 Intake Total 2974 / 2974 2117 / 2117 Output Total 700 / 700 425 / 425 Balance 2274 / 2274 1692 / 1692 General: Alert, Oriented x3, Cooperative, No apparent distress, - - on 3L oxygen HEENT: Atraumatic, PERRLA, EOMI, Normocephalic Oral: Moist Mucosa Neck: Supple, No JVD, Negative Carotid Bruits Lungs: Clear to auscultation, Normal air movement Cardiovascular: Regular rate, Regular Rhythm, Normal S1, Normal S2, No murmurs Abdomen: Bowel Sounds Present, Soft, Non Tender, Non-Distended, No Hepato- splenomegaly Extremities: No edema Skin: No rashes, No breakdown Musculoskeletal: Tenderness - over the right hip, edema, tenderness, dressing intact Lymphatic: No Cervical, Supraclavicular, or Inguinal Adenopathy Neurological: Cranial nerves II-XII grossly intact, Neuro grossly intact Psych/Mental Status: Normal Affect, Appropriate Laboratory Results 06/10/18 08:15: Urine Color Yellow, Urine Clarity Clear, Urine pH 5.0, Ur Specific Cosmos 1.020, Urine Protein 30 H, Urine Glucose (UA) Normal, Urine Ketones Negative, Urine Occult Blood 150 H, Urine Nitrite Negative, Urine Bilirubin 1 H, Urine Urobilinogen 4 H, Ur Leukocyte Esterase 500 H, Urine RBC 0- 5 SEEN, Urine WBC 0-5 SEEN, Ur Squamous Epith Cells 0 SEEN, Amorphous Sediment 1+, Urine Bacteria 0 SEEN, Urine Mucus 0 SEEN 06/11/18 06:12: WBC 9.3, RBC 3.67 L, Hgb 12.0, Hct 38.2, MCV 104.1 H, MCH 32.7 H , MCHC 31.4 L, RDW 13.3, RDW Differential 50.4 H, Plt Count 167, MPV 8.8 06/11/18 06:12: Sodium 138, Potassium 3.7, Chloride 111 H, Carbon Dioxide 21.0, Anion Gap 6, BUN 10, Creatinine 0.76, Estim Creat Clear Calc 43.27, Est GFR (MDRD) Af Amer 95, Est GFR (MDRD) Non-Af 79, BUN/Creatinine Ratio 13.1, Glucose 82, Calcium 6.9 L Current Medications Acetaminophen (Tylenol) 1,000 mg PO Q8 [facility] Last Admin: 06/11/18 05:56 Dose: 1,000 mg Albuterol Sulfate (Ventolin Aerosols) 2.5 mg INHALATION Q4H PRN PRN Albuterol/Ipratropium (Duoneb) 3 ml INHALATION Q6HWA.RT [facility] Last Admin: 06/11/18 07:21 Dose: 3 ml Aspirin (Aspirin, Baby) 81 mg PO DAILY@0800 [facility] Last Admin: 06/10/18 07:21 Dose: Not Given Enoxaparin Sodium (Lovenox) 40 mg SC DAILY@1000 [facility] Last Admin: 06/10/18 07:21 Dose: Not Given Pantoprazole Sodium 40 mg/ (Sodium Chloride) 110 mls @ 330 mls/hr IV Q24 [facility] Last Admin: 06/10/18 08:55 Dose: 330 mls/hr Sodium Chloride () 1,000 mls @ 120 mls/hr IV .Q8H20M [facility] Stop: 06/11/18 16:24 Last Admin: 06/11/18 00:03 Dose: 120 mls/hr Magnesium Hydroxide (Milk Of Magnesia) 30 ml PO DAILY PRN PRN PRN Reason: Constipation Morphine Sulfate () 2 mg IV Q3H PRN PRN PRN Reason: SEVERE PAIN (6-10/10) Last Admin: 06/10/18 05:55 Dose: 2 mg Ondansetron HCl (Zofran) 4 mg IV Q8H PRN PRN PRN Reason: NAUSEA Oxycodone HCl (Oxyir) 5 - 10 mg PO Q4H PRN PRN PRN Reason: MOD-SEVERE PAIN (4-10/10) Last Admin: 06/11/18 00:07 Dose: 10 mg Senna/Docusate Sodium (Senokot-S, Kaye-Colace) 2 tablet PO BID SONY Last Admin: 06/10/18 22:10 Dose: 2 tablet Sodium Chloride () 5 - 15 ml IV UD PRN PRN Reason: SALINE FLUSH Last Admin: 06/10/18 05:56 Dose: 10 ml Medical Necessity - Tobacco Use Smoking Status: Former smoker Tobacco Use: Cigarettes Assessment/Plan All Active Problems Metabolic acidosis (Acute) Metabolic encephalopathy (Acute) 72-year-old female with past medical history of COPD, nicotine dependency who comes in after a fall. Patient sustained acute right subcapital femoral neck fracture. She is postop day 1 status post right hip hemiarthroplasty. 1. POD #1 status post right hip hemiarthroplasty for acute right traumatic subcapital femoral neck fracture, pain is fairly controlled, vitals are stable. Continue on pain medications, physical and occupational therapy evaluation, further surgical recommendations per orthopedic team. 2. Acute respiratory insufficiency secondary to atelectasis, admitting chest x- ray with a new focus of atelectasis/fibrosis over the right lung base, patient is currently on 3 L of oxygen, appears not to be in distress, will continue to encourage use of incentive spirometer and wean off for SPO2 more than 94%. 3. COPD, not in acute exacerbation, will continue with as needed breathing treatments 4. 10 dependence, advised to quit, will put on replacement patch and nicotine gum prn 5. DVT prophylaxis with Lovenox subcu Code Visit Inpatient E&M: 51277 Subs Hosp L2
[2018-06-11] MEDS: Aspirin 81 MG TAB.CHEW PO (08:39)
--- NOTE | 2018-06-11 09:35 | CASEMGMT ---
ARTURO COOL Face to Face with patient for initial transition planning/care coordination assessment. ARTURO COOL introduced self and role at [facility]. Patient lying in bed, alert and oriented. Patient willing to participate in assessment and is able to answer all questions appropriately. Care providers, pharmacy, and demographics verified. Patient wishes to discharge home but requires 2 assist for ambulation. Patient states that she has a daughter but will not be able to help. Patient states that she has been to [place] before and does not want to go back. ARTURO COOL updated patient that GINNA will be in to discuss placement options. Patient states she has no further needs or concerns at this time. GINNA Gibbs updated regarding possible placement. Disposition Plan: SNF pending precert. Dolly BAILEY, RN, CM
[2018-06-11] MEDS: Enoxaparin 40 MG/0.4 ML Syringe SC (10:15)
[2018-06-11] MEDS: Senna/Docusate Sodium 1 Tablet 2 TABLET PO ×2 (10:16→21:39)
--- NOTE | 2018-06-11 11:06 | PN.ORTHO_ITS ---
Subjective: Patient is postoperative day #1 from right hip hemiarthroplasty. She denies chest pain or shortness of breath. No productive cough. No rest pain. Some pain with moving her right hip. Reported pain with weightbearing. Patient is planning on DC to ECF. Arrangements being planned. Objective: Right hip bandages on clean and dry. Good leg lengths. No significant thigh pain on palpation. No significant calf pain or swelling. Negative Homans sign. Good active plantar flexion dorsiflexion toes and ankles. CHEIKH hose and SCDs are on. Ice is on right hip. No deformity of the right hip noted. Laboratory work and vital signs reviewed X-rays AP pelvis lateral of right hip shows a cemented stem right hip hemia rthroplasty replacement, bipolar, in good position without obvious loosening failure or fracture. Good leg lengths noted. - Physical Exam Vital Signs Temp Pulse Resp BP Pulse Ox 98.2 F 94 16 142/63 H 94 06/11/18 08:28 06/11/18 08:28 06/11/18 08:40 06/11/18 08:28 06/11/18 08:28 Oxygen Flow Rate (L/min) 3 Oxygen Delivery Method Nasal Cannula Weight: 69.3 kg Body Mass Index (BMI) 26.2 Finger Stick Blood Glucose 117 Intake and Output for Last 24 Hours 06/09/18 06/10/18 06/11/18 23:59 23:59 23:59 Intake Total 2974 / 2974 2117 / 2117 Output Total 700 / 700 425 / 425 Balance 2274 / 2274 1692 / 1692 Microbiology Past 72 Hours 06/10/18 08:15 Urine Culture - Preliminary Urine Catheter - Beavers Culture exhibits no growth. Laboratory Tests Past 24 Hrs 06/10/18 06/11/18 06/11/18 08:15 06:12 06:12 WBC 9.3 RBC 3.67 L Hgb 12.0 Hct 38.2 MCV 104.1 H MCH 32.7 H MCHC 31.4 L RDW 13.3 RDW Differential 50.4 H Plt Count 167 MPV 8.8 Sodium 138 Potassium 3.7 Chloride 111 H Carbon Dioxide 21.0 Anion Gap 6 BUN 10 Creatinine 0.76 Estim Creat Clear Calc 43.27 Est GFR (MDRD) Af Amer 95 Est GFR (MDRD) Non-Af 79 BUN/Creatinine Ratio 13.1 Glucose 82 Calcium 6.9 L Urine Color Yellow Urine Clarity Clear Urine pH 5.0 Ur Specific [place] 1.020 Urine Protein 30 H Urine Glucose (UA) Normal Urine Ketones Negative Urine Occult Blood 150 H Urine Nitrite Negative Urine Bilirubin 1 H Urine Urobilinogen 4 H Ur Leukocyte Esterase 500 H Urine RBC 0-5 SEEN Urine WBC 0-5 SEEN Ur Squamous Epith Cells 0 SEEN Amorphous Sediment 1+ Urine Bacteria 0 SEEN Urine Mucus 0 SEEN Medical Necessity - Tobacco Use Smoking Status: Former smoker Tobacco Use: Cigarettes Assessment/Plan All Active Problems Metabolic acidosis (Acute) Metabolic encephalopathy (Acute) Her diagnosis and treatment options regarding her right hip fracture discussed with her at length. Recommended upright position and incentive spirometer use. Recommended weightbearing as tolerated. Hip dislocation precautions explained. Recommended not smoking and explained why. She can be discharged to ECF when a rrangements made. CHEIKH rodrigez SCDs and Lovenox for DVT prevention, and on baby aspirin medical problems including history of COPD, tobacco use -continue evaluation and treatment per hospitalist service
--- NOTE | 2018-06-11 12:39 | CASEMGMT ---
Addendum entered by Dolly Gibbs 06/11/18 13:59: SW attempted to see patient again to discuss discharge plans, pt's daughter still not present in room. SW will follow up with pt and pt's daughter on Monday to determine discharge plans. Plan: SNF pending acceptance and pre-cert Original Note: Social Work Note SW met with pt to discuss discharge plans. SW introduced self and role at [facility]. Pt is alert and orientated. Pt states that she wishes to wait until her daughter gets to [facility] to discuss discharge planning. Pt states that her daughter should be at [facility] later today but was unsure of the time. SW asked pt if this worker call call her daughter and pt denied. Pt states she isn't home right now. SW informed pt that this worker will check back in before this worker leaves for the day to see if pt's daughter is at [facility]. Pt states understanding. Pt will likely need SNF at discharge as pt is currently max assist of 2. SW will continue to follow along to assist with discharge planning. SW will wait until pt's daughter arrives at [facility] to discuss discharge plans. Plan: SNF pending acceptance and pre-cert Dolly Gibbs SUBSTANCE ABUSE SPECIALIST, NUTRITION CONSULTANT
[2018-06-12] VITALS (13 sets, daily range): BP systolic 115–149; BP diastolic 47–89; PULSE 74–93; RESP 16–20; TEMP 36.6–37; O2SAT 93–98
[2018-06-12] MEDS: oxyCODONE 5 MG Tablet PO ×3 (02:21→19:00)
[2018-06-12] MEDS: Acetaminophen 500 MG Tablet 1000 MG PO ×3 (05:22→22:32)
--- NOTE | 2018-06-12 06:10 | RAD_ITS ---
STUDY: X-RAY - RIGHT KNEE REASON FOR EXAM: Female, 72 years old. TECHNIQUE: 2 view(s) of the knee. COMPARISON: None. FINDINGS: There is an undisplaced comminuted fracture involving the proximal tibia, the fracture line reaches the articular surface. There is the impaction involving the lateral tibial plateau manifested by increased density of the bone in this region. A vertical fracture line is seen in the proximal tibia. RAD/Knee 1 or 2 Views IMPRESSION: Undisplaced comminuted fracture involving the proximal tibia. Electronically Signed: Mandie Yoo, at 8:16 EST Tel , Service support ,
[2018-06-12 06:14] LABS: Hematocrit 35.9 % (37-47); Hemoglobin 11.2 g/dl (12.0-15.0); Mean Corp Hgb Conc 31.2 g/gl (32-36); Mean Corpuscular Hgb 32.7 pg (27.0-32.0); Mean Corpuscular Volume 104.7 fL (81-99); Mean Platelet Vol. 9.6 fl (6.2-12.0); Platelet Count 170 K/mm3 (150-450); RBC Distribution Width CV 12.9 % (11.6-14.6); RBC Distribution Width SD 48.7 fl (35.1-43.9); Red Blood Count 3.43 M/mm3 (4.2-5.4); White Blood Count 7.2 K/mm3 (4.4-11.0)
[2018-06-12 06:15] LABS: Scan Indicated on CBC? Y/N NO
[2018-06-12] MEDS: Ipratropium/Albuterol Sulfate 3 ML AMPUL.NEB INHALATION ×3 (07:16→19:02)
--- NOTE | 2018-06-12 08:22 | PN_ITS ---
Subjective: Patient was seen and examined. Complained of right knee pain. X-ray showed non- displaced noncomminuted fracture of the tibial plateau. Discussed with orthopedics, will put patient in a knee mobiliser, non-weight bearing. Vitals/I&O's: Vital Signs Temp Pulse Resp BP Pulse Ox 98 F 84 20 H 146/82 H 93 06/12/18 02:30 06/12/18 07:31 06/12/18 07:31 06/12/18 02:30 06/12/18 07:31 Oxygen Flow Rate (L/min) 2 Oxygen Delivery Method Nasal Cannula Weight: 69.3 kg Body Mass Index (BMI) 26.2 Finger Stick Blood Glucose 117 Intake and Output for Last 24 Hours 06/10/18 06/11/18 06/12/18 23:59 23:59 23:59 Intake Total 2974 / 2974 3830 / 3830 Output Total 700 / 700 1725 / 1725 Balance 2274 / 2274 2105 / 2105 General: Alert, Oriented x3, Cooperative HEENT: Atraumatic, PERRLA, EOMI, Normocephalic Neck: Supple, No JVD, Negative Carotid Bruits Lungs: Clear to auscultation, Normal air movement Cardiovascular: Regular rate, No murmurs Abdomen: Bowel Sounds Present, Soft, Non Tender Extremities: Edema - over the right knee and hip, bilateral trace -+1 pedal tania ma Skin: No rashes, No breakdown Musculoskeletal: No Tenderness to Palpation of Joints or Extremities Lymphatic: No Cervical, Supraclavicular, or Inguinal Adenopathy Neurological: Cranial nerves II-XII grossly intact, Neuro grossly intact Psych/Mental Status: Normal Affect, Appropriate Microbiology Past 72 Hours 06/10/18 08:15 Urine Catheter - Beavers Urine Culture - Final Culture exhibits no growth. Laboratory Results 06/12/18 05:30: WBC 7.2, RBC 3.43 L, Hgb 11.2 L, Hct 35.9 L, MCV 104.7 H, MCH 32.7 H, MCHC 31.2 L, RDW 12.9, RDW Differential 48.7 H, Plt Count 170, MPV 9.6 Current Medications Acetaminophen (Tylenol) 1,000 mg PO Q8 [facility] Last Admin: 06/12/18 05:22 Dose: 1,000 mg Albuterol Sulfate (Ventolin Aerosols) 2.5 mg INHALATION Q4H PRN PRN Albuterol/Ipratropium (Duoneb) 3 ml INHALATION Q6HWA.RT [facility] Last Admin: 06/12/18 07:16 Dose: 3 ml Aspirin (Aspirin, Baby) 81 mg PO DAILY@0800 [facility] Last Admin: 06/11/18 08:39 Dose: 81 mg Enoxaparin Sodium (Lovenox) 40 mg SC DAILY@1000 [facility] Last Admin: 06/11/18 10:15 Dose: 40 mg Magnesium Hydroxide (Milk Of Magnesia) 30 ml PO DAILY PRN PRN PRN Reason: Constipation Morphine Sulfate () 2 mg IV Q3H PRN PRN PRN Reason: SEVERE PAIN (6-10/10) Last Admin: 06/10/18 05:55 Dose: 2 mg Nicotine (Nicoderm Cq (Pbkc)) 21 mg TRANSDERM. DAILY [facility] Last Admin: 06/11/18 10:24 Dose: Not Given Nicotine Polacrilex (Rugby Nicotine (Bkc)) 2 mg PO Q2H PRN PRN PRN Reason: Nicotine Craving Ondansetron HCl (Zofran) 4 mg IV Q8H PRN PRN PRN Reason: NAUSEA Oxycodone HCl (Oxyir) 5 - 10 mg PO Q4H PRN PRN PRN Reason: MOD-SEVERE PAIN (4-10/10) Last Admin: 06/12/18 02:21 Dose: 10 mg Pantoprazole Sodium (Protonix) 40 mg PO DAILY [facility] Senna/Docusate Sodium (Senokot-S, Kaye-Colace) 2 tablet PO BID [facility] Last Admin: 06/11/18 21:39 Dose: 2 tablet Sodium Chloride () 5 - 15 ml IV UD PRN PRN Reason: SALINE FLUSH Last Admin: 06/10/18 05:56 Dose: 10 ml Medical Necessity - Tobacco Use Smoking Status: Former smoker Tobacco Use: Cigarettes Assessment/Plan All Active Problems Metabolic acidosis (Acute) Metabolic encephalopathy (Acute) 72-year-old female with past medical history of COPD, nicotine dependency who comes in after a fall. Patient sustained acute right subcapital femoral neck fracture. She is postop day 1 status post right hip hemiarthroplasty. 1. POD #1 status post right hip hemiarthroplasty for acute right traumatic subcapital femoral neck fracture, pain is fairly controlled, vitals are stable. Continue on pain medications, physical and occupational therapy evaluation, further surgical recommendations per orthopedic team. 2. Acute respiratory insufficiency secondary to atelectasis, admitting chest x- ray with a new focus of atelectasis/fibrosis over the right lung base, patient is currently on 3 L of oxygen, appears not to be in distress, will continue to encourage use of incentive spirometer and wean off for SPO2 more than 94%. 3. COPD, not in acute exacerbation, will continue with as needed breathing treatments 4. Nicotine 0 dependence, advised to quit, will put on replacement patch and nicotine gum prn 5. DVT prophylaxis with Lovenox subcu Code Visit Inpatient E&M: 26259 Subs Hosp L2
[2018-06-12] MEDS: Senna/Docusate Sodium 1 Tablet 2 TABLET PO ×2 (10:16→22:32)
[2018-06-12] MEDS: Aspirin 81 MG TAB.CHEW PO (10:17)
[2018-06-12] MEDS: Pantoprazole Sodium 40 MG Tablet PO (10:17)
[2018-06-12] MEDS: Enoxaparin 40 MG/0.4 ML Syringe SC (10:19)
--- NOTE | 2018-06-12 10:50 | PN.ORTHO_ITS ---
Subjective: Patient states her right knee is still hurting. Her right hip is feeling better. Patient had x-rays done showing a tibial plateau fracture without severe displacement. Patient is in a knee immobilizer. She denies chest pain or shortness of breath. Denies calf pain. She believes she hurt her knee and hip when she fell off the porch at home Objective: Right knee is in a knee immobilizer. Right knee has tenderness. No calf pain. Negative Homans sign. No hip pain with gentle motion. Legs are neurovascular intact distally. Knee was not stressed due to known fracture X-rays AP and lateral right knee shows a lateral tibial plateau fracture with some posterior impaction. Also possible nondisplaced fracture line involving the medial aspect of the tibia, nondisplaced. Laboratory work and vital signs reviewed Case discussed with the hospitalist this morning - Physical Exam Vital Signs Temp Pulse Resp BP Pulse Ox 98 F 84 20 H 146/82 H 93 06/12/18 02:30 06/12/18 07:31 06/12/18 07:31 06/12/18 02:30 06/12/18 07:31 Oxygen Flow Rate (L/min) 2 Oxygen Delivery Method Nasal Cannula Weight: 69.3 kg Body Mass Index (BMI) 26.2 Finger Stick Blood Glucose 117 Intake and Output for Last 24 Hours 06/10/18 06/11/18 06/12/18 23:59 23:59 23:59 Intake Total 2974 / 2974 3830 / 3830 Output Total 700 / 700 1725 / 1725 Balance 2274 / 2274 2105 / 2105 Microbiology Past 72 Hours 06/10/18 08:15 Urine Culture - Final Urine Catheter - Beavers Culture exhibits no growth. Laboratory Tests Past 24 Hrs 06/12/18 05:30 WBC 7.2 RBC 3.43 L Hgb 11.2 L Hct 35.9 L MCV 104.7 H MCH 32.7 H MCHC 31.2 L RDW 12.9 RDW Differential 48.7 H Plt Count 170 MPV 9.6 Medical Necessity - Tobacco Use Smoking Status: Former smoker Tobacco Use: Cigarettes Assessment/Plan All Active Problems Metabolic acidosis (Acute) Metabolic encephalopathy (Acute) Her diagnosis and treatment options regarding her right hip and newly diagnosed right knee fracture discussed with her at length. Recommended upright position and incentive spirometer use. Recommended nonweightbearing on right lower extremity with knee immobilizer on. I explained based on her knee fracture pattern I believe this should heal uneventfully without surgery. Risk of posttraumatic arthritis does exist. If she develops posttraumatic arthritis, knee replacement could be done on an elective basis. Hip dislocation precautions explained. Recommended not smoking and explained why. She can be discharged to ECF when arrangements made. CHEIKH rodrigez SCDs and Lovenox for DVT prevention, and on baby aspirin medical problems including history of COPD, tobacco use -continue evaluation and treatment per hospitalist service Follow-up with orthopedics in 10-12 days for evaluation, x-rays, wound check, s taple removal
[2018-06-13] VITALS (13 sets, daily range): BP systolic 130–143; BP diastolic 54–66; PULSE 80–103; RESP 16–20; TEMP 36.7–37.3; O2SAT 93–97
[2018-06-13] MEDS: oxyCODONE 5 MG Tablet PO ×3 (04:37→18:59)
[2018-06-13] MEDS: Acetaminophen 500 MG Tablet 1000 MG PO ×3 (06:23→21:16)
[2018-06-13 06:29] LABS: Hematocrit 31.6 % (37-47); Hemoglobin 10.1 g/dl (12.0-15.0); Mean Corpuscular Hgb 33.1 pg (27.0-32.0); Mean Corpuscular Volume 103.6 fL (81-99); Mean Platelet Vol. 9.6 fl (6.2-12.0); Platelet Count 200 K/mm3 (150-450); RBC Distribution Width CV 12.7 % (11.6-14.6); RBC Distribution Width SD 47.2 fl (35.1-43.9); Red Blood Count 3.05 M/mm3 (4.2-5.4); Scan Indicated on CBC? Y/N NO; White Blood Count 5.8 K/mm3 (4.4-11.0)
[2018-06-13] MEDS: Ipratropium/Albuterol Sulfate 3 ML AMPUL.NEB INHALATION ×3 (06:52→19:04)
--- NOTE | 2018-06-13 07:36 | PCM.PN.HOSP ---
Subjective: Patient was seen and examined. Complains of severe pain in the right hip and both knees, worse with ambulation. In a knee mobiliser and cooling mat to left knee. Denies fever or chills or SOB. Remains on 3L oxygen. No acute events overnight. Waiting on precert for discharge. Objective: General: Alert, Oriented x3, Cooperative, on 3L oxygen, in pain HEENT: Atraumatic, PERRLA, EOMI, Normocephalic Neck: Supple, No JVD, Negative Carotid Bruits Lungs: Clear to auscultation, Normal air movement Cardiovascular: Regular rate, No murmurs Abdomen: Bowel Sounds Present, Soft, Non Tender Extremities: Edema - over the right knee and hip, bilateral trace -+1 pedal edema, in right knee mobiliser and cooling mat to left knee. Skin: No rashes, No breakdown Musculoskeletal: No Tenderness to Palpation of Joints or Extremities Lymphatic: No Cervical, Supraclavicular, or Inguinal Adenopathy Neurological: Cranial nerves II-XII grossly intact, Neuro grossly intact Psych/Mental Status: Normal Affect, Appropriate Vitals/I&O's: Vital Signs Temp Pulse Resp BP Pulse Ox 98.1 F 83 18 140/54 H 93 06/13/18 04:28 06/13/18 06:52 06/13/18 06:52 06/13/18 04:28 06/13/18 06:52 Oxygen Flow Rate (L/min) 2 Oxygen Delivery Method Nasal Cannula Weight: 69.3 kg Body Mass Index (BMI) 26.2 Finger Stick Blood Glucose 117 Intake and Output for Last 24 Hours 06/11/18 06/12/18 06/13/18 23:59 23:59 23:59 Intake Total 3830 / 3830 1550 / 1550 500 / 500 Output Total 1725 / 1725 350 / 350 300 / 300 Balance 2105 / 2105 1200 / 1200 200 / 200 Microbiology Past 72 Hours 06/10/18 08:15 Urine Catheter - Beavers Urine Culture - Final Culture exhibits no growth. Laboratory Results 06/13/18 05:46: WBC 5.8, RBC 3.05 L, Hgb 10.1 L, Hct 31.6 L, MCV 103.6 H, MCH 33.1 H, MCHC 32.0, RDW 12.7, RDW Differential 47.2 H, Plt Count 200, MPV 9.6 Current Medications Acetaminophen (Tylenol) 1,000 mg PO Q8 [facility] Last Admin: 06/13/18 06:23 Dose: 1,000 mg Albuterol Sulfate (Ventolin Aerosols) 2.5 mg INHALATION Q4H PRN PRN Albuterol/Ipratropium (Duoneb) 3 ml INHALATION Q6HWA.RT [facility] Last Admin: 06/13/18 06:52 Dose: 3 ml Aspirin (Aspirin, Baby) 81 mg PO DAILY@0800 [facility] Last Admin: 06/12/18 10:17 Dose: 81 mg Enoxaparin Sodium (Lovenox) 40 mg SC DAILY@1000 [facility] Last Admin: 06/12/18 10:19 Dose: 40 mg Magnesium Hydroxide (Milk Of Magnesia) 30 ml PO DAILY PRN PRN PRN Reason: Constipation Morphine Sulfate () 2 mg IV Q3H PRN PRN PRN Reason: SEVERE PAIN (6-10/10) Last Admin: 06/10/18 05:55 Dose: 2 mg Nicotine (Nicoderm Cq (Pbkc)) 21 mg TRANSDERM. DAILY [facility] Last Admin: 06/12/18 10:16 Dose: 21 mg Nicotine Polacrilex (Rugby Nicotine (Bkc)) 2 mg PO Q2H PRN PRN PRN Reason: Nicotine Craving Ondansetron HCl (Zofran) 4 mg IV Q8H PRN PRN PRN Reason: NAUSEA Oxycodone HCl (Oxyir) 5 - 10 mg PO Q4H PRN PRN PRN Reason: MOD-SEVERE PAIN (4-10/10) Last Admin: 06/13/18 04:37 Dose: 10 mg Pantoprazole Sodium (Protonix) 40 mg PO DAILY [facility] Last Admin: 06/12/18 10:17 Dose: 40 mg Senna/Docusate Sodium (Senokot-S, Kaye-Colace) 2 tablet PO BID [facility] Last Admin: 06/12/18 22:32 Dose: 2 tablet Sodium Chloride () 5 - 15 ml IV UD PRN PRN Reason: SALINE FLUSH Last Admin: 06/10/18 05:56 Dose: 10 ml Medical Necessity - Tobacco Use Smoking Status: Former smoker Tobacco Use: Cigarettes Assessment/Plan All Active Problems Metabolic acidosis (Acute) Metabolic encephalopathy (Acute) 72-year-old female with past medical history of COPD, nicotine dependency who comes in after a fall. Patient sustained acute right subcapital femoral neck fracture. She is postop day 1 status post right hip hemiarthroplasty. 1. POD #3 status post right hip hemiarthroplasty for acute right traumatic subcapital femoral neck fracture, undergoing PT/OT treatments, continue with pain control and surgical recommendations. 2. Newly diagnosed right comminuted proximal tibial fracture, in knee mobiliser, will follow Brody Cason in the outpatient. 3. Acute respiratory insufficiency secondary to atelectasis, admitting chest x-ray with a new focus of atelectasis/fibrosis over the right lung base, patient is currently on 3 L of oxygen, appears not to be in distress, will continue to encourage use of incentive spirometer and wean off for SPO2 more than 94%. 4. COPD, not in acute exacerbation, will continue with as needed breathing treatments 5. Nicotine dependence, advised to quit, will put on replacement patch and nicotine gum prn 6. DVT prophylaxis with Lovenox subcu Code Visit Inpatient E&M: 20164 Subs Hosp L2
[2018-06-13] MEDS: Enoxaparin 40 MG/0.4 ML Syringe SC (08:26)
[2018-06-13] MEDS: Aspirin 81 MG TAB.CHEW PO (08:27)
[2018-06-13] MEDS: Senna/Docusate Sodium 1 Tablet 2 TABLET PO (08:27)
[2018-06-13] MEDS: Pantoprazole Sodium 40 MG Tablet PO (08:32)
--- NOTE | 2018-06-13 09:48 | CASEMGMT ---
Social Work Note SW met with pt to confirm discharge plans. Pt is alert and orientated x4. Pt state that she and her daughter would like a referral sent to [facility] or [facility]. SW informed pt that [facility] is in network with her insurance but [facility] isn't. Pt agreeable to referral being sent to [facility]. SW explained referral process and that pt will need pre-cert. Pt states understanding. GINNA placed a call to [facility] quality management to send referral to [facility]. Plan: [facility] pending acceptance and pre-cert. Dolly Gibbs NET WEB APPLICATION DEVELOPER, WET WASHER MACHINE
--- NOTE | 2018-06-13 10:15 | CASEMGMT ---
Call placed to Ca at [facility]. Informed her that referral would be sent over. Referral faxed, confirmation received. Zohra Coronado LPN Clinical Support
[2018-06-13] MEDS: Magnesium Hydroxide 30 ML UDC PO (11:32)
[2018-06-13] MEDS: 0.9% NaCl Peripheral Flush Adult/Peds IV ×2 (11:33→21:24)
[2018-06-13] MEDS: Morphine 2 MG/ML Syringe IV ×2 (11:33→21:18)
--- NOTE | 2018-06-13 12:24 | CASEMGMT ---
Received voicemail from Ca at [facility], facility is able to accept patient and precert started. Zohra Coronado LPN Clinical Support
[2018-06-14] VITALS (8 sets, daily range): BP systolic 135–140; BP diastolic 61–72; PULSE 71–97; RESP 18–19; TEMP 36.1–36.8; O2SAT 92–98
[2018-06-14] MEDS: oxyCODONE 5 MG Tablet PO ×3 (05:23→14:23)
[2018-06-14] MEDS: Acetaminophen 500 MG Tablet 1000 MG PO ×3 (05:23→14:24)
[2018-06-14 06:16] LABS: BUN 7 mg/dL (7-18); Creatinine, Serum 0.58 mg/dL (0.55-1.02); Estimated Creatinine Clearance 43.27 ml/min; Glucose 89 mg/dL (74-106)
[2018-06-14 06:17] LABS: Anion Gap 7 (5-15); Chloride 105 mmol/L (98-107); EST Glomerular Filtration Rate 107 mL/min (>60); Est Glom Filt Rate - Afr Amer 130 mL/min (>60); Potassium 3.6 mmol/L (3.5-5.1); Sodium Level 140 mmol/L (136-145)
[2018-06-14 06:48] LABS: Absolute Lymphocyte Count 1.54 X10^3/ul (0.83-4.51); Absolute Neutrophil Count 3.1 X10^3/uL (2.0-7.7); Basophil# 0.03 X10^3/uL; Basophil% 0.5 % (0-1); Eosinophil# 0.27 X10^3/uL; Eosinophils% 4.6 % (0-5); Hematocrit 35.3 % (37-47); Lymphocyte # 1.54 X10^3/ul (4.0); Lymphocyte % 26.2 % (19-41); Mean Corp Hgb Conc 31.2 g/gl (32-36); Mean Corpuscular Hgb 32.3 pg (27.0-32.0); Mean Corpuscular Volume 103.5 fL (81-99); Mean Platelet Vol. 9.8 fl (6.2-12.0); Monocyte# 0.89 X10^3/uL; Monocyte% 15.2 % (0-10); Neutrophil # 3.12 X10^3/uL (2.7-7.7); Neutrophil % 53.2 % (47-70); Platelet Count 237 K/mm3 (150-450); RBC Distribution Width CV 12.9 % (11.6-14.6); RBC Distribution Width SD 47.6 fl (35.1-43.9); Red Blood Count 3.41 M/mm3 (4.2-5.4); White Blood Count 5.9 K/mm3 (4.4-11.0)
[2018-06-14 06:53] LABS: POSITIVE COUNT NO; POSITIVE DIFFERENTIAL NO; POSITIVE MORPHOLOGY NO
[2018-06-14] MEDS: Ipratropium/Albuterol Sulfate 3 ML AMPUL.NEB INHALATION (07:00)
--- NOTE | 2018-06-14 08:26 | CASEMGMT ---
Received voicemail from Ca at [facility]. Insurance pre-cert obtained for patient to discharge to [facility] today. Voicemail forwarded to to make aware that pre-cert obtained. Zohra Coronado LPN Clinical Support
[2018-06-14] MEDS: Enoxaparin 40 MG/0.4 ML Syringe SC (08:55)
[2018-06-14] MEDS: Aspirin 81 MG TAB.CHEW PO (08:55)
[2018-06-14] MEDS: Pantoprazole Sodium 40 MG Tablet PO (08:56)
[2018-06-14] MEDS: Senna/Docusate Sodium 1 Tablet 2 TABLET PO (08:56)
--- NOTE | 2018-06-14 09:26 | PCM.TXEXTCAR ---
- Diet 06/10/18 16:16 Diet: Regular Diet Food consistency:: Regular Liquid Consistency:: Regular/Thin Is pt able to select menu?: Yes - Routine Orders/Code Status O2 Frequency: PRN Keep PO Greater than or Equal to (%): 94 Routine Lab Work: CBC - within 3 days, BMP - within 3 days Code Status: Full Code - Wound(s) right elbow Wound Type: Abrasion right forearm Wound Type: Abrasion RIGHT HIP Wound Type: Surgical Incision Dressing Change: MEPELIX - Therapies Weight Bearing: Non weight bearing Extremity Affected:: Right Lower Physical Therapy: Eval and Treat Occupational Therapy: Eval and Treat - Allergies/Procedures Done in Hospital Allergies/Adverse Reactions: Allergies No Known Allergies Allergy (Verified 06/10/18 00:10) Procedures: - - s/p right hip hemiarthroplasty - Type of Care/Length of Stay Estimated LOS: Convalescent Care Less Than 30 days Type of Care Needed: Skilled Rehab Potential: Good Prognosis: Good - Additional Orders/Day of Discharge Additional Orders: Non-weight bearing per orthopedics recommendation. Continue to use knee immobiliser. Day of Discharge: 06/14/18 - Dietary and Speech Recommendations Dietitian Recommendations/Changes: Advance diet as tolerated to regular. - Follow Up Care Primary Care Physician: Mirna Olson MD [Primary Care Provider] - Please follow up with your Primary Care Physician in: within 2 weeks of discharge from SNF Please Follow Up With: Milton Cason MD When: in 10-12 days (Jun 20-) for x-rays, wound check, nick removal
--- NOTE | 2018-06-14 09:34 | PCM.DC.SUM ---
Discharge Date and Diagnosis Date of Admission: 06/10/18 Date of Discharge: 06/14/18 - Primary Discharge Diagnosis status post right hip hemiarthroplasty for acute right traumatic subcapital femoral neck fracture, Newly diagnosed right comminuted proximal tibial fracture, in knee mobiliser, will follow Brody Cason in the outpatient. Acute respiratory insufficiency secondary to atelectasis, resolved COPD, not in acute exacerbation Nicotine dependence - Secondary Discharge Diagnosis Chronic Problems COPD (chronic obstructive pulmonary disease) (Chronic) Smoking addiction (Chronic) PVD (peripheral vascular disease) (Chronic) Hospital Course and Treatment Imaging Results: Clinical Impression(s) from Imaging Studies Chest X-Ray 06/10/18 00:20 IMPRESSION: COPD. New focus of atelectasis or fibrosis overlying the right lung base. No demonstrated pulmonary airspace infiltrate. Electronically Signed: Luis Armando Mejias MD at 1:32 EST , Service support , Hip/Pelvis X-Ray 06/10/18 00:20 IMPRESSION: Angulated right subcapital femoral neck fracture. No demonstrated pelvic fracture Electronically Signed: Luis Armando Mejias MD at 1:34 EST , Service support , Hip X-Ray 06/10/18 11:10 IMPRESSION: Status post right hip arthroplasty due to femoral neck transection Electronically Signed: Josh Emmanuel DO at 11:41 EST Tel , Service support , Knee X-Ray 06/12/18 06:10 IMPRESSION: Undisplaced comminuted fracture involving the proximal tibia. Electronically Signed: Mandie Yoo, at 8:16 EST Tel , Service support , Orthopedic surgery - Dr. Cason Operations: total hip replacement Procedures: None Summary of Care Provided: 72-year-old female with past medical history of COPD, nicotine dependency who comes in after a fall. Patient sustained acute right subcapital femoral neck fracture. She had right hip hemiarthroplasty. Post-operatively, she complained of persistent knee pain, especially of the right and was found to have right comminuted proximal tibial fracture. Orthopedic recommended management in a knee mobiliser, and follow-up in the outpatient. She was also found postoperatively to be requiring 2-3L of oxygen. No signs of COPD exacerbation was found. Chest x-ray showed atelectasis. She was managed on incentive spirometer and breathing treatments with progressive improvements in her oxygenation and successful wean-off oxygen. Subjective: Patient was seen and examined. Her pain is fairly controlled. Denies any new complains. Objective: General: Alert, Oriented x3, Cooperative, on 3L oxygen, in pain HEENT: Atraumatic, PERRLA, EOMI, Normocephalic Neck: Supple, No JVD, Negative Carotid Bruits Lungs: Clear to auscultation, Normal air movement Cardiovascular: Regular rate, No murmurs Abdomen: Bowel Sounds Present, Soft, Non Tender Extremities: Edema - over the right knee and hip, bilateral trace -+1 pedal edema, in right knee mobiliser and cooling mat to left knee. Skin: No rashes, No breakdown Musculoskeletal: No Tenderness to Palpation of Joints or Extremities Lymphatic: No Cervical, Supraclavicular, or Inguinal Adenopathy Neurological: Cranial nerves II-XII grossly intact, Neuro grossly intact Psych/Mental Status: Normal Affect, Appropriate - Physical Exam Vital Signs Temp Pulse Resp BP Pulse Ox 96.9 F L 87 18 140/72 H 94 06/14/18 08:47 06/14/18 08:47 06/14/18 08:47 06/14/18 08:47 06/14/18 08:47 Oxygen Flow Rate (L/min) 2 Oxygen Delivery Method Room Air Weight: 69.3 kg Body Mass Index (BMI) 26.2 Finger Stick Blood Glucose 117 Intake and Output for Last 24 Hours 06/12/18 06/13/18 06/14/18 23:59 23:59 23:59 Intake Total 1550 / 1550 1120 / 1120 500 / 500 Output Total 350 / 350 1400 / 1400 1400 / 1400 Balance 1200 / 1200 -280 / -280 -900 / -900 Microbiology Past 72 Hours 06/10/18 08:15 Urine Culture - Final Urine Catheter - Beavers Culture exhibits no growth. Laboratory Tests Past 24 Hrs 06/14/18 06/14/18 05:20 05:20 WBC 5.9 RBC 3.41 L Hgb 11.0 L Hct 35.3 L MCV 103.5 H MCH 32.3 H MCHC 31.2 L RDW 12.9 RDW Differential 47.6 H Plt Count 237 MPV 9.8 Immature Gran % (Auto) 0.300 Neut % (Auto) 53.2 Lymph % (Auto) 26.2 [place] % (Auto) 15.2 H Eos % (Auto) 4.6 Baso % (Auto) 0.5 Absolute Neuts (auto) 3.1 Absolute Lymphs (auto) 1.54 Total Counted Not Reportable Sodium 140 Potassium 3.6 Chloride 105 Carbon Dioxide 28.0 Anion Gap 7 BUN 7 Creatinine 0.58 Estim Creat Clear Calc 43.27 Est GFR (MDRD) Af Amer 130 Est GFR (MDRD) Non-Af 107 BUN/Creatinine Ratio 12.0 Glucose 89 Calcium 8.0 L Discharge Diet: No Restrictions Discharge Activity: - - Non-weightbearing, right knee Weight Bearing Status: No weight bearing Home Medications: Medications to take at Discharge Aspirin [Aspirin, Baby] 81 mg PO DAILY@0800 08/17/16 Ibuprofen 200 mg PO Q6H PRN PRN 06/10/18 Acetaminophen [Tylenol] 1,000 mg PO Q8 tablet 06/14/18 Albuterol Aerosols [Ventolin Aerosols] 2.5 mg INHALATION Q4H PRN PRN vial.neb. 06/14/18 Enoxaparin [Lovenox] 40 mg SC DAILY@1000 syringe 06/14/18 Ipratropium/Albuterol Sulfate [Duoneb] 3 ml INHALATION Q6HWA.RT ampul.neb 06/14/18 Magnesium Hydroxide [Milk Of Magnesia] 30 ml PO DAILY PRN PRN udc 06/14/18 Nicotine Polacrilex [Nicotine Gum] 2 mg PO Q2H PRN PRN gum 06/14/18 Nicotine [Nicoderm Cq] 21 mg TRANSDERM. DAILY patch 06/14/18 Senna/Docusate Sodium [Senokot-S] 2 tablet PO BID PRN #60 tablet 06/14/18 Primary Care Physician: Mirna Olson MD [Primary Care Provider] - Please follow up with your Primary Care Physician in: within 2 weeks of discharge from SNF Please Follow Up With: Milton Cason MD When: in 10-12 days (Jun 20-) for x-rays, wound check, nick removal Disposition: Jail facility Minutes spent on discharge:: 40 Patient Condition:: Stable Medical Necessity - Tobacco Use Smoking Status: Former smoker Tobacco Use: Cigarettes Meaningful Use Info Meaningful Use Diagnoses (Choose all that apply): None applicable Code Visit Inpatient E&M: 40635 Disch Hosp
--- NOTE | 2018-06-14 10:08 | CASEMGMT ---
Social Work Note GINNA received voicemail from Ca at [facility] stating pre-cert has been obtained. Physician completed discharge paperwork. GINNA faxed completed discharge paperwork to Ca at [facility] including transfer to extended care facility, signed medication list and any scripts. Originals in SNF folder and copy on pt's chart. GINNA completed convalescent [facility] in [facility]. Original in SNF folder and copy on pt's chart. GINNA placed a call to Ca at [facility] and updated her on transportation time. GINNA placed a call to Pt's daughter Carol and updated her on pt's discharge and transportation time. GINNA updated pt and RN Cori of transportation time. Plan: Pt to discharge to [facility] today for short term rehabilitation at 2:00pm with Wes transporting via cot Dolly Gibbs GRINDER OPERATOR EXTERNAL TOOL, CHIPPER MACHINE OPERATOR
--- NOTE | 2018-06-14 12:12 | NURSING ---
called placed to prasanna langley notified that pt will be getting picked up @ 1400, report given to nurse whom will be taking over care for this patient
== END 2018-06-14 14:03 | disposition skilled nursing facility (03) | DRG 470 ==
LOC: ED 02:23 → MS3 03:03
PROVIDERS: Orthopaedic Surgery; Admitting Provider Student in an Organized Health Care Education/Training Program; Emergency Provider Emergency Medicine; Family Provider Internal Medicine; PCP Internal Medicine; Visit Provider Internal Medicine
PROC: 0SRR0J9 Replacement of Right Hip Joint, Femoral Surface with Synthetic Substitute, Cemented, Open Approach (ICD-10-PCS; CPT 27125; principal; 2018-06-10 08:10)
DX: S72.011A Unspecified intracapsular fracture of right femur, initial encounter for closed fracture (principal); S82.144A Nondisplaced bicondylar fracture of right tibia, initial encounter for closed fracture; S82.191A Other fracture of upper end of right tibia, initial encounter for closed fracture; J98.11 Atelectasis; W19.XXXA Unspecified fall, initial encounter; Y92.008 Other place in unspecified non-institutional (private) residence as the place of occurrence of the external cause; J44.9 Chronic obstructive pulmonary disease, unspecified; K21.9 Gastro-esophageal reflux disease without esophagitis; I73.9 Peripheral vascular disease, unspecified; Z79.82 Long term (current) use of aspirin; Z99.81 Dependence on supplemental oxygen; F17.200 Nicotine dependence, unspecified, uncomplicated
CPT/HCPCS: 36415; 51702; 71045; 73502; 73560; 80048; 81001; 85025; 85027; 86850; 86900; 87086; 88305; 88307; 88311; 93005; 94640; 94762; 97110; 97162; 97166; 97530; 97802; 99285; 99406; C1776; J7030; J7040; J7050; A4216; J2405; J3490

== ENCOUNTER 2019-01-23 10:15 | Day surgery (SDC) | payer MEDICARE, SELFPAY ==
--- NOTE | 2019-01-01 02:49 | HP_ITS ---
Intake Vital Signs 01/01/19 Body Mass Index (BMI) 26.2 01/01/19 Height 5 ft 4 in 01/01/19 Weight: 150 lb 2 oz 01/01/19 Body Mass Index (BMI) 25.7 01/01/19 Blood Pressure 144/86 H 01/01/19 Blood Pressure Location Rt brachial 01/01/19 Blood Pressure Position Sitting 01/01/19 Respiratory Rate 22 H 01/01/19 Pulse Rate 98 01/01/19 Pulse Ox 92 Intake Visit Reasons: PAD Chief Complaint: PAD Actuarial Technician Required: No Is patient in pain?: No Allergies No Known Allergies Allergy (Verified 01/01/19 13:47) Medications Aspirin [Aspirin, Baby] 81 mg PO DAILY@0800 08/17/16 [History Confirmed 01/01/19] Ibuprofen 200 mg PO Q6H PRN PRN 06/10/18 [History Confirmed 01/01/19] Acetaminophen [Tylenol] 1,000 mg PO Q8 tab 06/14/18 [Rx Confirmed 01/01/19] Albuterol Aerosols [Ventolin Aerosols] 2.5 mg INHALATION Q4H PRN PRN vial.neb. 06/14/18 [Rx Confirmed 01/01/19] Ipratropium/Albuterol Sulfate [Duoneb] 3 ml INHALATION Q6HWA.RT ampul.neb 06/14/18 [Rx Confirmed 01/01/19] Nicotine Polacrilex [Nicotine Gum] 2 mg PO Q2H PRN PRN gum 06/14/18 [Rx Confirmed 01/01/19] Nicotine [Nicoderm Cq] 21 mg TRANSDERM. DAILY patch 06/14/18 [Rx Confirmed 01/01/19] montelukast 10 mg tablet 10 mg PO QPM 01/01/19 [History Confirmed 01/01/19] rosuvastatin 5 mg tablet 5 mg PO DAILY 01/01/19 [History Confirmed 01/01/19] Is last menstrual period known: No Post menopausal: No Patient : No PFSH Medical History (Updated 01/01/19 @ 13:45 by Vikki Dixon) COPD (chronic obstructive pulmonary disease) (Chronic) Smoking addiction (Chronic) PVD (peripheral vascular disease) (Chronic) Metabolic acidosis (Acute) Metabolic encephalopathy (Acute) Asthma (Acute) Back pain (Acute) Emphysema/COPD (Acute) Hemorrhoids (Acute) Surgical History (Updated 01/01/19 @ 13:45 by Vikki Dixon) History of atherectomy (Acute ~2017) History of cholecystectomy (Acute) History of colonoscopy (Acute) Family History (Updated 01/01/19 @ 13:46 by Vikki Dixon) Mother Diabetes Heart disease Hypertension Breast cancer CVA (cerebral vascular accident) Father Diabetes Heart disease Hypertension Cancer prostate Sister Diabetes Heart disease Hypertension Social History (Updated 01/01/19 @ 14:53 by Jose Ramon Tuttle MD) Smoking Status: Former smoker HPI HPI HPI: GUY CARVALHO, is a 73 F who presents to the office today for HPI HPI Surgical H&P: Yes HPI: GUY CARVALHO, is a 73 F who presents to the office today for surgical consultation regarding progressive bilateral extremity peripheral arterial occlusive disease. The patient is referred by her primary care physician Dr. Mirna Olson and a written copy of my surgical consult and recommendations will be returned to her. Patient was released from the senior living in September 2018. She had been in the senior living for 4 months prior to that because of her right hip and knee fracture. She was quite sedentary during that time. She is complaining now that bilateral lower extremities are very fatigued. She complains of discoloration of her feet and a feeling of warmth and heat. At the [facility] on December 12, 2018 she had bilateral lower extremity noninvasive arterial exam. The right DP and PT ABIs at rest was 0.31 and 0.55. The left PT and DP ankle-brachial indices were 0.53 and 0.56. Previously October 04, 2016 the right ALON was 0.71 and the left ALON was 0.74. There has been clinically significant diminishment bilaterally. There is felt to be right distal superficial femoral and/or popliteal disease and right infrageniculate disease. There is felt to be left superficial femoral artery disease left distal superficial femoral artery/popliteal disease and left infrageniculate disease. The patient has been a lifelong cigarette smoker and she continues to smoke. Previous study of the right superficial femoral artery on October 04 suggested patency of her superficial femoral artery at that time. 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 It is of note that previously on August 18, 2016 I performed a right lower extremity LXM turbo Hawk directional atherectomy with subsequent 5 x 80 mm ever cross angioplasty of the superficial femoral artery. She has not made her ongoing surgical follow-up appointment since that time. She is maintained on a statin medication as well as low-dose aspirin as well as her inhalers. ROS General General: Yes weight change and fatigue; no appetite, colon cancer, breast cancer or weakness HEENT HEENT: No difficulty swallowing, eye injury, eye surgery, swollen glands or hoarseness Endo Endocrine: No thyroid disease, diabetes mellitus, thyroid cancer, Hair loss, heat intolerance or cold intolerance Cardio Cardiovascular: Yes high blood pressure; no murmur, pacemaker, heart disease, atrial fibrillation, heart attack, heart stent, palpitations, shortness of breat with exertion or chest pain Resp Respiratory: Yes shortness of breath, No sleep apnea, Yes cough, Yes COPD, Yes asthma, Yes emphysema, No wheezing Soren Hematologic: No blood thinners, No blood disorders, No bleeding, No anemia, No blood clots Neuro Neurologic: No weakness Exam Const General: cooperative Nutritional Appearance: average body habitus Orientation: alert, awake Other: Patient appears to be far older than stated age [facility] Head: normal to inspection Chest Other: Notably increased anterior posterior diameter Resp Auscultation: clear to auscultation bilaterally Cardio Rate: regular rate Rhythm: regular rhythm Heart Sounds: no murmurs Other: Bilateral radial and brachials are 3+. Bilateral carotid 3+ no bruit Bilateral femorals are 3+ Bilateral popliteals DP and PT are 0 GI Palpation: soft, no hepatosplenomegaly Auscultation: normal bowel sounds Skin General: no rashes or lesions noted Neuro Cognition: normal cognition Extrem Other: Marked dependent rubor involving the entire left foot and distal portion of the right foot. Mildly diminished capillary refill bilaterally. No open sores. Hypertrophic nails. Diminished venous filling Psych Affect: normal affect Assessment & Plan Problems 1. Smoking addiction F17.200 2. PVD (peripheral vascular disease) I73.9 Plan The degree of progression of her bilateral lower extremity arterial occlusive disease and just the past 2 years is quite remarkable. At the time of her right lower extremity atherectomy and angioplasty arteriogram at that time did not demonstrate clinically significant occlusive disease of her left superficial femoral artery. Yet in just 2 years she has had repeat complete occlusion of the right superficial femoral artery and new onset occlusion of the left superficial femoral artery. Studies also suspect further infrageniculate occlusive disease bilaterally. I suspect that her symptoms are worse because of her 4 months of decreased physical activity related to her right hip and knee orthopedic injury. As always I have strongly encouraged the patient to stop her tobacco use. I am offering her a abdominal pelvic left lower extremity arteriogram with possible endovascular intervention. She has not had intervention on the left lower extremity previously. The right lower extremity previously had atherectomy and angioplasty of the superficial femoral artery and did have a small focal aneurysm related to that intervention. She is aware of the technique, benefit, risks, alternatives. No guarantees of success have been offered. The patient is progressively advancing in her disease process and clearly is at increased risk for limb loss. I appreciate the opportunity of assisting with her surgical care CC: Dr. Mirna Tuttle M.D., F.A.C.S. Coding Level of Care Code 73531 Diagnoses Smoking addiction F17.200 PVD (peripheral vascular disease) I73.9 01/01/19 1453 <Electronically signed by Jose Ramon arce MD> Date _ Jose Ramon Tuttle MD I have re-examined the patient. There are no clinical changes since date of exam.
[2019-01-01 13:47] VITALS: BMI 26.2
--- NOTE | 2019-01-16 09:39 | EKG12_ITS ---
Test Reason : PRE-OP Blood Pressure : / mmHG Vent. Rate : 086 BPM Atrial Rate : 086 BPM P-R Int : 168 ms QRS Dur : 086 ms QT Int : 368 ms P-R-T Axes : 070 065 070 degrees QTc Int : 440 ms Normal sinus rhythm Normal ECG Confirmed by DANYA STARKS, LAVERN ([id number]), film editor supervisor MEE RUBIO ([id number]) on 01/17/2019 1:28:08 PM Referred By: Jose Ramon Tuttle Confirmed By:LAVERN HAGAN MD
[2019-01-16 09:42] LABS: Hematocrit 45.7 % (37-47); Hemoglobin 14.6 g/dL (12.0-15.0); Mean Corp Hgb Conc 31.9 g/dL (32-36); Mean Corpuscular Hgb 32.2 pg (27.0-32.0); Mean Corpuscular Volume 100.9 fL (81-99); Mean Platelet Vol. 8.4 fl (6.2-12.0); Platelet Count 341 K/mm3 (150-450); RBC Distribution Width CV 13.4 % (11.6-14.6); RBC Distribution Width SD 50.4 fl (35.1-43.9); Red Blood Count 4.53 M/mm3 (4.2-5.4); White Blood Count 8.9 K/mm3 (4.4-11.0)
[2019-01-16 09:56] LABS: Anion Gap 8 (5-15); BUN 10 mg/dL (7-18); BUN/Creat Ratio 12.4 RATIO (10-20); Calcium,Total 8.6 mg/dL (8.5-10.1); Chloride 106 mmol/L (98-107); EST Glomerular Filtration Rate 74 mL/min (>60); Est Glom Filt Rate - Afr Amer 90 mL/min (>60); Glucose 107 mg/dL (74-106); Potassium 4.1 mmol/L (3.5-5.1); Sodium Level 143 mmol/L (136-145)
--- NOTE | 2019-01-23 12:47 | PCM.OPRPT ---
Problem List (1) PVD (peripheral vascular disease) Status: Chronic Report of Operation Date of Procedure: 01/23/19 Pre-Operative Diagnosis: Symptomatic bilateral extremity peripheral arterial occlusive disease Post-Operative Diagnosis: Occluded left superficial femoral artery. Occluded distal left anterior tibial artery Surgery/Procedure Performed:: Abdominal pelvic left lower extremity arteriogram with left superficial femoral artery LXM Turbo Hawk atherectomy and 5 x 200 mm ever cross angioplasty Description of Surgical Findings:: Timeout and informed consent was obtained. The patient was taken to the special procedure lab placed on the table. Bilateral groins were sterilely prepped and draped. Throughout the procedure and aliquots she received a total of 150 mcg of fentanyl and 4 mg of Versed is intravenous sedation. Under ultrasound guidance the right common femoral artery was identified 2% lidocaine was used as local anesthetic a total of 10 cc was used. Under ultrasound guidance a micropuncture needle was inserted. Micropuncture wire inserted. A micropuncture sheath was inserted. An 035 J-wire was inserted. A 5 South African short sheath dilator was inserted. Using an 035 angled glide wire a 5 [place] flush catheter was placed into the mid infrarenal abdominal aorta. Using Visipaque contrast 3 to 15 cc a second for 15 cc a AP abdominal pelvic arteriogram was obtained. I then utilized a flush catheter in the 035 clip Glidewire to gain access to the left iliac system. We exchanged out the flush catheter for an 035 quick cross catheter. The quick cross catheter was eventually advanced in the left superficial femoral artery and static views of the left lower extremity were obtained. This demonstrated occlusion of the left mid thigh superficial femoral artery. There was additional 60% stenosis of the proximal popliteal. I placed an 035 Magic wire. I exchanged out the 5 South African sheath for a 7 South African destination sheath. The patient then received 8000 units of heparin. Based upon ACT measurements she received another 1000 units of heparin throughout the procedure. Through the 7 South African destination sheath I placed the 035 quick cross catheter and using an 035 angled Glidewire was able to get access to the area of complete occlusion of the left SFA. The quick cross catheter was placed into the left distal SFA and static views obtained demonstrating distal patency. I then placed a 6 mm spider wire into the left popliteal. We pre-ballooned the occluded area with a 3 x 80 mm Millicent cross balloon. We then used the LXM turbo Hawk atherectomy device and atherectomy was performed of the mid left SFA as well as distally the left superior popliteal artery. Several different passes were performed. Intermittent imaging was obtained between passes to assure no trauma. Having accomplished this with good about of material removed I then placed a 5 x 2 mm ever cross balloon and balloon angioplasty up to 6 anmol of pressure was performed of the SFA. Completion views now demonstrated reestablishment of complete patency with good initial three-vessel runoff to the left foot. Basket wires removed. 035 Magic wire was replaced. The 7 [place] African sheath was removed and a Perclose device was placed. Initial Perclose device did not deploy correctly so I placed a second 1 which did deployed nicely. Pressure was additionally held for hemostasis which was achieved. No apparent complication of the left foot was viable at the completion with a palpable left PT pulse. The left anterior tibial distally proximal to the ankle was dopplerable. No apparent complication minimal blood loss. Arteriogram demonstrates a patent abdominal aorta distally with patent bilateral common iliacs internal iliacs and external iliacs. The left profundofemoral is widely patent. The left superficial femoral occludes approximately 12 centers past its origin. Is occluded for about 10 cm in refills. There is an area of 60% stenosis of the proximal left popliteal. There is three-vessel runoff with the left peroneal being diminutive. The left anterior tibial occludes just at the ankle. Left posterior tibial does cross the ankle and fills the foot. Subsequent to the atherectomy and angioplasty there is now reestablishment of in-line flow throughout the occluded section of left mid superficial femoral artery. The left supragenicular popliteal is notably improved with a 20% residual stenosis. Impression Successfully treated left lower extremity superficial femoral artery occlusion and stenosis of the superior popliteal. Jose Ramon Tuttle M.D., F.A.C.S. Type of Anesthesia:: IV Sedation, Local
[2019-01-23 13:06] LABS: ACT Activated Clotting Time 125 sec (74-137)
[2019-01-23 13:06] LABS: ACT Activated Clotting Time 246 sec (74-137)
[2019-01-23 13:06] LABS: ACT Activated Clotting Time 257 sec (74-137)
[2019-01-23 15:00] VITALS: BP 146/84; PULSE 97; RESP 16; O2SAT 100
[2019-01-23 16:00] VITALS: BP 138/55; PULSE 90; RESP 16; TEMP 36.6; O2SAT 92
[2019-01-23 17:00] VITALS: BP 130/63; PULSE 88; RESP 16; TEMP 36.6; O2SAT 95
--- NOTE | 2019-01-23 17:30 | NURSING ---
ambulated pt in niño, rt groin dressing c/d/i, no signs of hematoma noted
--- NOTE | 2019-01-23 17:38 | NURSING ---
spoke with Dr. Tuttle, updated him on pt's condition. Per Dr. Tuttle pt is ok for discharge at this time
== END 2019-01-23 17:45 | disposition home or self-care (01) ==
LOC: CLSP 10:16 → PCU 15:21
PROVIDERS: Family Provider Internal Medicine; PCP Internal Medicine; Referring Provider Surgery; Visit Provider Surgery
DX: I73.9 Peripheral vascular disease, unspecified (principal); I70.202 Unspecified atherosclerosis of native arteries of extremities, left leg; I72.4 Aneurysm of artery of lower extremity; J44.9 Chronic obstructive pulmonary disease, unspecified; I10 Essential (primary) hypertension; F17.210 Nicotine dependence, cigarettes, uncomplicated; Z79.02 Long term (current) use of antithrombotics/antiplatelets; Z79.82 Long term (current) use of aspirin; Z79.899 Other long term (current) drug therapy
CPT/HCPCS: 36200; 36245; 36415; 37225; 75625; 75710; 76937; 80048; 85027; 85347; 93005; 99152; 99153; J7030; J7040; Q9967; C1714; C1725; C1760; C1769; C1884; C1887; C1894

== ENCOUNTER 2019-04-24 11:29 | Emergency (ER) | payer MEDICARE, MEDICAID, SELFPAY ==
[2019-01-01 13:47] VITALS: BMI 26.2
[2019-04-24 11:31] VITALS: BP 165/82; PULSE 96; RESP 18; TEMP 36.4; O2SAT 94; BMI 28.8
[2019-04-24 12:17] VITALS: PULSE 89; RESP 22
[2019-04-24] MEDS: Ipratropium/Albuterol Sulfate 3 ML AMPUL.NEB INHALATION ×3 (12:17→12:23)
--- NOTE | 2019-04-24 12:48 | RAD_ITS ---
STUDY: X-RAY CHEST REASON FOR EXAM: Female, 73 years old. One-month history of shortness of breath. COPD. TECHNIQUE: AP and lateral views of the chest. COMPARISON: Comparison is made with prior study dated June 10, 2018. FINDINGS: EKG electrodes are seen. Hyperinflation. Stable mild degree of increased markings at the lung bases suggestive of mild degree of bibasilar scarring. Decreased bronchovascular markings suggestive of emphysematous changes. There is no demonstrated pleural abnormality. Normal size heart. Normal mediastinum and jin. Normal visualized pulmonary arteries. There is atherosclerotic calcification of the aortic arch with tortuosity. There is demineralization of the osseous structures. Normal visualized ribs, clavicles, and shoulders. There is no demonstrated abnormality of the visualized soft tissue structures of the upper abdomen. RAD/Chest PA and Lateral IMPRESSION: Hyperinflation. Stable mild degree of increased markings at the lung bases suggestive of scarring. Electronically Signed: Fabricio Zamarripa, at 13:32 EST , Service support ,
[2019-04-24] MEDS: MethylPREDNISolone 125 MG/2 ML Vial IV (12:50)
[2019-04-24 12:56] LABS: Absolute Lymphocyte Count 1.92 X10^3/uL (0.83-4.51); Absolute Neutrophil Count 4.5 X10^3/uL (2.0-7.7); Basophil# 0.04 X10^3/uL; Basophil% 0.5 % (0-1); Eosinophil# 0.12 X10^3/uL; Eosinophils% 1.6 % (0-5); Hematocrit 43.1 % (37-47); Hemoglobin 13.7 g/dL (12.0-15.0); Lymphocyte # 1.92 X10^3/ul (4.0); Lymphocyte % 25.8 % (19-41); Mean Corp Hgb Conc 31.8 g/dL (32-36); Mean Corpuscular Hgb 32.2 pg (27.0-32.0); Mean Corpuscular Volume 101.4 fL (81-99); Mean Platelet Vol. 8.6 fl (6.2-12.0); Monocyte# 0.82 X10^3/uL; NRBC Flagged by Analyzer 0 % (0-5); Neutrophil # 4.49 X10^3/uL (2.7-7.7); Neutrophil % 60.6 % (47-70); Platelet Count 336 K/mm3 (150-450); RBC Distribution Width SD 48.4 fl (35.1-43.9); Red Blood Count 4.25 M/mm3 (4.2-5.4); White Blood Count 7.4 K/mm3 (4.4-11.0)
[2019-04-24 13:08] LABS: Anion Gap 6 (5-15); BUN 8 mg/dL (7-18); BUN/Creat Ratio 11.2 RATIO (10-20); Calcium,Total 8.5 mg/dL (8.5-10.1); Chloride 106 mmol/L (98-107); Creatinine, Serum 0.72 mg/dL (0.55-1.02); EST Glomerular Filtration Rate 85 mL/min (>60); Est Glom Filt Rate - Afr Amer 102 mL/min (>60); Estimated Creatinine Clearance 42.62 ml/min; Glucose 85 mg/dL (74-106); Potassium 3.7 mmol/L (3.5-5.1); Sodium Level 142 mmol/L (136-145)
[2019-04-24 13:29] VITALS: PULSE 85; RESP 18; O2SAT 96
[2019-04-24 14:20] VITALS: BP 147/83; PULSE 81; RESP 16; O2SAT 95
--- NOTE | 2019-04-24 14:21 | ED.VISSUMM ---
- ER Visit Summary Date of Service: 04/24/19 Chief Complaint: Dyspnea History of Present Illness: The patient is a 73 F who states she has a history of COPD, is still an active smoker, and has had worsening breathing for 1 month. She does not wear home oxygen. She went to the clinic today and was told her pulse ox was 90% and that she should come to the emergency department. She notes a cough but no change in sputum production. She notes dyspnea on exertion. No fevers or chills. She has not been on any steroids in the past month. No prior hospitalizations for COPD. She has been using breathing treatments both MDI as well as aerosols at home. Physical Examination: Afebrile vital signs are stable Gen: Well-nourished well-developed Head: Normocephalic atraumatic Eyes: Perrl EOMI ENT: TMs clear no rhinorrhea moist mucous membranes Neck: Supple no lymphadenopathy no JVD nontender CVS: Regular rate rhythm no murmurs normal S1-S2 Respiratory: No distress and has inspiratory and expiratory wheezes bilaterally. Diminished breath sounds bilaterally. Chest nontender Abdomen: Soft nontender nondistended normal bowel sounds no masses Back: Nontender Extremity: Nontender no edema Skin: Normal color no rash Neuro: alert orientated ?3 CN II-XII intact normal strength Psych: Normal affect normal mood Test Results: Chest x-ray is negative. CBC with a white count 7.4. Emergency Department Course and Treatment: Patient received 3 DuoNeb's as well as Solu-Medrol. Repeat examination shows her to have continued expiratory wheezes but air exchange is improved and inspiratory wheezes have resolved. She is able to ambulate down the hallway on room air at 94%. Patient will be placed on doxycycline, prednisone, and I will write for DuoNeb aerosols to have at home. Return if worsening or concerns Impression: 1. Acute COPD exacerbation This note was generated with [employer] dictation software. It may contain incorrect words, spelling, and punctuation that were not noted in review of the chart prior to signing ED Disposition - Plan for ED Patient: Disposition: Home or Assisted Living Instructions: Copd Flare Prescriptions: Prednisone [Deltasone] 60 mg PO DAILY #12 tab Prescription Printed Doxycycline 100 mg PO BID #14 cap Prescription Printed Ipratropium/Albuterol Sulfate [Duoneb] 3 ml INHALATION Q6H.RT PRN #25 ampul.neb PRN Reason: Wheezing Prescription Printed Referrals: Mirna Olson MD [Primary Care Provider] - 3-5 Days if not improving
== END 2019-04-24 14:31 | disposition home or self-care (01) ==
PROVIDERS: Emergency Provider Emergency Medicine; Family Provider Internal Medicine; PCP Internal Medicine
DX: J44.1 Chronic obstructive pulmonary disease with (acute) exacerbation (principal); F17.200 Nicotine dependence, unspecified, uncomplicated; Z79.02 Long term (current) use of antithrombotics/antiplatelets; Z79.899 Other long term (current) drug therapy
CPT/HCPCS: 71046; 80048; 85025; 94640; 96374; 99285; A4216

== ENCOUNTER 2019-06-24 19:34 | Emergency (ER) | payer MEDICARE, MEDICAID, SELFPAY ==
[2019-06-24 19:36] VITALS: BP 154/99; PULSE 101; RESP 20; TEMP 36.6; O2SAT 98; BMI 28.6
[2019-06-24 21:12] VITALS: PULSE 95; RESP 20
[2019-06-24] MEDS: Albuterol 2.5 MG/3 ML VIAL.NEB. INHALATION (21:12)
--- NOTE | 2019-06-24 21:26 | ED.DCSUM_ITS ---
History of Present Illness Chief Complaint: Shortness of Breath Informant: Patient Onset: Today Narrative: Patient is evaluated for worsening of her COPD. Patient was called by EMS by sister because she had increased work of breathing today. Patient states her symptoms started today. She states she felt fine yesterday. She tried taking her breathing treatments but was not helping. Patient received a DuoNeb and Solu-Medrol in route via EMS and had improvement. Patient states her breathing still is feeling better. She states she does not want a chest x-ray or further evaluation for her breathing. Patient does, that she has had pain of her left third toe for the past 2 weeks. It is been turning black. It is painful with even light touch. She describes the pain is burning. She states she has a history of poor blood flow to her feet. She states she did need to call Dr. Tuttle, surgery for evaluation of this. She denies any other complaint at this time. Past Medical History - Allergies and Home Meds Allergies/Adverse Reactions: Allergies No Known Allergies Allergy (Verified 06/24/19 19:42) Primary Care Physician: Mirna Olson MD [Primary Care Provider] - Past Medical History: - - COPD, emphysema, peripheral vascular disease, tobacco abuse Surgical History: cholecystectomy - R LE revasc surgery Lives: With Family Smoking Status: Current every day smoker - Family History Maternal Family History: Family History (Last Reviewed 02/04/19 @ 12:49 by Najma Newman) Mother Diabetes Heart disease Hypertension Breast cancer CVA (cerebral vascular accident) Father Diabetes Heart disease Hypertension Cancer Sister Diabetes Heart disease Hypertension Family History: Reports: Heart Disease, Hypertension, - Review of Systems General: Denies: Chills, Fever, Sweats Eyes: Denies: Visual changes - bilaterally, Diplopia ENT: Denies: Rhinorrhea, Sore throat Cardiovascular: Denies: Chest pain, Palpitations Respiratory: Reports: Dyspnea, Cough, Sputum - white. Denies: Dyspnea on exertion Gastrointestinal: Denies: Abdominal pain, Nausea, Vomiting, Diarrhea, Melena, Hematochezia Genitourinary: Denies: Dysuria, Hematuria, Frequency Musculoskeletal: Reports: Extremity Pain - left toe. Denies: Back pain Skin: Reports: Rash - left third toe . Denies: Wounds Neurological: Denies: Headache, Weakness, Numbness Physical Exam Vital Signs/Narrative: Vital Signs Temp Pulse Resp BP Pulse Ox 06/24/19 19:36 97.8 F 101 H 20 H 154/99 H 98 Inital Vital Signs reviewed: Yes General: Well nourished, Well developed, No Acute Distress Head: Normocephalic, Atraumatic Eyes: Perrl, EOMI ENT: Moist mucous membranes, No rhinorrhea Neck: Supple, Nontender Cardiovascular: Regular rate, Regular rhythm, No murmurs Respiratory: No distress, Chest nontender, Wheezing - Diffuse, - - Diminished distal pulses. Patient has a triphasic PT pulse. Biphasic DP pulse auscultated.. Negative for: Decreased Air Movement, Retractions Abdomen: Soft, Nontender, Nondistended, Normal bowel sounds Back: Nontender, Normal Inspection Extremities: Nontender, No edema. Negative for: Edema Skin: No rash, - - Ischemic discoloration of the left middle toe from the proximal phalanges distally. There is a blister overlying left third PIP. It is very tender to palpation. The color changes are concerning for ischemia. Patient has some mild purple discoloration of the left fifth toe at the very distal aspect as well Neurological: Alert, Oriented x3, Cranial nerves II-XII grossly intact, Normal Strength, Normal Sensation Psychological: Normal affect, Normal Mood Diagnostic/Tx/Re-eval Laboratory Data 06/24/19 06/24/19 06/24/19 21:34 21:34 21:34 WBC 10.1 RBC 4.31 Hgb 13.7 Hct 42.8 MCV 99.3 H MCH 31.8 MCHC 32.0 RDW Std Deviation 51.2 H RDW Coeff of Patrice 14.0 Plt Count 322 MPV 8.8 Immature Gran % (Auto) 0.500 Neut % (Auto) 88.0 H Lymph % (Auto) 7.9 L [place] % (Auto) 2.4 Eos % (Auto) 0.4 Baso % (Auto) 0.8 Absolute Neuts (auto) 8.9 H Absolute Lymphs (auto) 0.80 L Nucleated RBC % 0 PT 13.4 INR 1.0 APTT 26.8 Sodium 138 Potassium 4.1 Chloride 106 Carbon Dioxide 28.0 Anion Gap 4 L BUN 6 L Creatinine 0.73 Estim Creat Clear Calc 44.41 Est GFR (MDRD) Af Amer 100 Est GFR (MDRD) Non-Af 83 BUN/Creatinine Ratio 8.2 L Glucose 121 H Calcium 8.2 L - Medical Decision Making Patient is a 73-year-old female presenting for COPD exacerbation. She refuses x-ray in the emergency room. She is improved with Solu-Medrol and a DuoNeb she received in route by EMS. On physical exam patient is noticed to have findings concerning for acute ischemic toe. Patient states she has a known history of peripheral vascular disease. She states is been worsening for the past 2 weeks. She states it is quite painful. She is given morphine and the [place] for the pain. She is plan on following up with Dr. Tuttle I discussed with surgery on- call who recommended I call Dr. Tuttle directly as he is only one that does vascular surgery. He feels that patient is already on Plavix does not need emergent vascular consult. He agrees with outpatient follow-up. Patient is counseled to call the office tomorrow to set up a follow-up appointment. She is given a course of [place]. She is also put on a course of prednisone for COPD exacerbation. Patient is given strict return precautions. She verbalizes agreement understand this plan. She is counseled on signs symptoms require return the emergency room. She is discharged home in stable condition. ED Disposition - Plan for ED Patient: Disposition: Home or Assisted Living Diagnosis: COPD exacerbation, Ischemic toe Instructions: Copd Flare, Peripheral Vascular Disease Prescriptions: Prednisone [Deltasone] 40 mg PO DAILY #10 tab Transmission Status: Received by [facility] Hydrocodone Bitart/Apap 5-325 [[place] 5MG-325MG] 1 tab PO Q6H PRN PRN 3 Days #12 tab PRN Reason: Pain Transmission Status: Received by [facility] Referrals: Mirna Olson MD [Primary Care Provider] -
[2019-06-24] MEDS: Morphine 4 MG/ML Syringe IV (21:32)
[2019-06-24 21:39] VITALS: PULSE 94; RESP 20; O2SAT 96
[2019-06-24 21:43] LABS: Absolute Neutrophil Count 8.9 X10^3/uL (2.0-7.7); Basophil# 0.08 X10^3/uL; Basophil% 0.8 % (0-1); Eosinophil# 0.04 X10^3/uL; Eosinophils% 0.4 % (0-5); Hematocrit 42.8 % (37-47); Hemoglobin 13.7 g/dL (12.0-15.0); Lymphocyte % 7.9 % (19-41); Mean Corpuscular Hgb 31.8 pg (27.0-32.0); Mean Corpuscular Volume 99.3 fL (81-99); Mean Platelet Vol. 8.8 fl (6.2-12.0); Monocyte# 0.24 X10^3/uL; Monocyte% 2.4 % (0-10); NRBC Flagged by Analyzer 0 % (0-5); Neutrophil # 8.89 X10^3/uL (2.7-7.7); Platelet Count 322 K/mm3 (150-450); RBC Distribution Width SD 51.2 fl (35.1-43.9); Red Blood Count 4.31 M/mm3 (4.2-5.4); White Blood Count 10.1 K/mm3 (4.4-11.0)
[2019-06-24 22:04] LABS: Prothrombin Time (Protime)PT. 13.4 SECONDS (11.7-14.9)
[2019-06-24 22:05] LABS: Partial Thromboplast Time 26.8 Seconds (24.1-36.2)
[2019-06-24 22:14] LABS: Anion Gap 4 (5-15); BUN 6 mg/dL (7-18); BUN/Creat Ratio 8.2 RATIO (10-20); Calcium,Total 8.2 mg/dL (8.5-10.1); Chloride 106 mmol/L (98-107); Creatinine, Serum 0.73 mg/dL (0.55-1.02); EST Glomerular Filtration Rate 83 mL/min (>60); Est Glom Filt Rate - Afr Amer 100 mL/min (>60); Estimated Creatinine Clearance 44.41 ml/min; Glucose 121 mg/dL (74-106); Potassium 4.1 mmol/L (3.5-5.1); Sodium Level 138 mmol/L (136-145)
[2019-06-24] MEDS: HYDROcodone Bitartrate/Apap 5/325 Tablet PO (22:43)
[2019-06-24 22:45] VITALS: BP 140/77; PULSE 98; RESP 20; O2SAT 94
== END 2019-06-24 22:45 | disposition home or self-care (01) ==
PROVIDERS: Emergency Provider Emergency Medicine; Family Provider Internal Medicine; PCP Internal Medicine
DX: J44.1 Chronic obstructive pulmonary disease with (acute) exacerbation (principal); I99.8 Other disorder of circulatory system; F17.200 Nicotine dependence, unspecified, uncomplicated; Z79.02 Long term (current) use of antithrombotics/antiplatelets
CPT/HCPCS: 80048; 85025; 85610; 85730; 94640; 96374; 99285

== ENCOUNTER → 2019-07-04 12:28 | Outpatient (CLI) | payer MEDICARE, MEDICAID, SELFPAY ==
[2019-06-24 19:36] VITALS: BMI 28.6
--- NOTE | 2019-07-04 12:35 | ART_ITS ---
Reason For Study: claudication, pvd Procedure A bilateral lower extremity continuous wave Doppler with analog waveform analysis,segmental pressures,and ankle brachial indexes without exercise. Left Segmental Pressures Left brachial= 155mmHg. Left digit = 75 mmHg. Left dorsalis pedis artery = 126mmHg. Left posterior tibial artery = 119mmHg. Left calf = 116mmHg. Left thigh = 126mmHg. Right Segmental Pressures Right brachial= 144mmHg. Right digit = 47 mmHg. Right dorsalis pedis artery = 84mmHg. Right posterior tibial artery = 105mmHg. Right calf = 94mmHg. Right thigh = 105mmHg. Indices The right ankle brachial index by the dorsalis pedis is .54. The right ankle brachial index by the posterior tibial artery is .68. The right digital-brachial index is .3. The left ankle brachial index by the dorsalis pedis is .81. The left ankle brachial index by the posterior tibial artery is .77. The left digital-brachial index is .48. Interpretation Summary Moderately severe bilateral lower extremity arterial occlusive disease based upon ankle-brachial indices. Doppler waveforms are only monophasic on the right consistent with severe disease. There are biphasic on the left consistent with mild to moderate disease Digital VPR's are essentially flattened on the right consistent with severe disease/small vessel disease Abnormal bilateral low thigh indices suggest iliofemoral inflow disease bilaterally Ordering Physician: Jose Ramon Tuttle Performed By: MARYA ORO Kathrin
== END ==
PROVIDERS: Family Provider Internal Medicine; PCP Internal Medicine; Referring Provider Surgery; Visit Provider Surgery
DX: I73.9 Peripheral vascular disease, unspecified (principal)
CPT/HCPCS: 93923

== ENCOUNTER 2022-12-16 16:51 | Emergency (ER) | payer MEDICARE, MEDICAID, SELFPAY ==
[2022-12-16 16:53] VITALS: BP 157/99; PULSE 94; RESP 14; TEMP 36.1; O2SAT 92; BMI 22.0
--- NOTE | 2022-12-16 17:10 | EX.ED.DYSGE1 ---
HPI History of Present Illness Chief Complaint: Abscess Informant: patient Narrative Narrative: Presents with a lesion draining on her right thigh. Patient is not a good informant for details. She tells me its been there a week and then a month and then 4 months and then she is not sure how long its been there. But it does not hurt and never has. She denies any trauma to the area. She is here because it has been draining somewhere between a couple days and a month. It drains some serosanguineous fluid. It has never been purulent. She has no systemic symptoms such as nausea vomiting fevers or chills. She denied blood thinners but I do note that she is on Plavix. PFSH PFSH Medical History Asthma Back pain COPD (chronic obstructive pulmonary disease) Emphysema/COPD Hemorrhoids Metabolic acidosis Metabolic encephalopathy PVD (peripheral vascular disease) Smoking addiction Home Medications albuterol sulfate 2.5 mg/3 mL (0.083 %) solution for nebulization 2.5 mg (3 mL) inhalation Q4H PRN PRN Sob &/Or Wheezing 06/14/18 [Rx Last Taken Unknown] montelukast 10 mg tablet 10 mg PO QPM 01/01/19 [History Last Taken Unknown] rosuvastatin 5 mg tablet 5 mg PO DAILY 01/01/19 [History Last Taken Unknown] clopidogrel 75 mg tablet 75 mg PO DAILY #90 tabs 01/23/19 [Rx Last Taken Unknown] ipratropium 0.5 mg-albuterol 3 mg (2.5 mg base)/3 mL nebulization soln 3 ml inhalation Q6H.RT PRN Wheezing ##25 04/24/19 [Rx Last Taken Unknown] prednisone 20 mg tablet 40 mg (2 x 20 mg) PO DAILY #10 tabs 06/24/19 [Rx Last Taken Unknown] fluticasone propionate 230 mcg-salmeterol 21 mcg/actuation HFA inhaler 2 inh inhalation BID 07/09/19 [History Last Taken Unknown] hydrocodone-acetaminophen 5-325mg 5mg-325mg 1 tab PO PRN 07/09/19 [History Last Taken Unknown] Allergy/AdvReac Type Severity Reaction Status Date / Time No Known Allergies Allergy Verified 12/16/22 16:53 Family History Mother Diabetes Heart disease Hypertension Breast cancer CVA (cerebral vascular accident) Father Diabetes Heart disease Hypertension Cancer prostate Sister Diabetes Heart disease Hypertension Surgical History history left lower extremity arteriogram (~01/23/19) History of atherectomy (~2017) History of cholecystectomy History of colonoscopy Social History Smoking Status: Former smoker ROS ROS ED Constitutional Constitutional ED: Denies chills, fever(s) or sweats ENT ENT ED: Denies rhinorrhea Cardiovascular Cardiovascular: Denies chest pain Respiratory/Chest Respiratory/Chest: Denies cough or dyspnea Gastrointestinal Gastrointestinal: Denies nausea or vomiting Musculoskeletal Musculoskeletal: Denies arthralgias, back pain, myalgias or neck pain Integumentary Reports other Details: See history of present illness Neurologic Neurologic: Denies paresthesias or weakness Hematologic/Lymphatic Hematologic/Lymphatic: Denies easy bleeding, easy bruising or lymphadenopathy Allergic/Immunologic Allergic/Immunologic ED: Denies urticaria EXAM Physical Exam Narrative Exam Narrative: Patient is awake alert. She is sitting comfortably in the bed no acute distress. HEENT shows no trauma. No intraoral lesions. No petechiae. Neck is supple Lungs are actually clear now. She does have significant COPD but is not coughing or wheezing. Heart sounds regular. I hear no murmur. Abdomen is soft and nontender. Extremities show no deformity. No pain with weightbearing or motion. Skin: Patient has a lesion on her right lateral mid thigh. It is approximately 2-2.5 cm around. It protrudes from the skin about 1 cm. It appears irregular and soft. It looks like it is likely a collection of vessels. There is an area on the anterior portion as if the patient was standing. This has a scab on it. This was cleaned and wiped off. I was able to get it to drain some serosanguineous fluid. But it is more serous than bloody. The edges of this lesion are extremely well-circumscribed and there are no indications of erythema. No purulent drainage. This does not at all look infectious. Const Vital Signs: 12/16/22 16:53 Temperature 97 F L Temperature Source Temporal Pulse Rate 94 Respiratory Rate 14 Blood Pressure 157/99 H Blood Pressure Mean 118 Pulse Ox 92 Oxygen Delivery Method Room Air MDM MDM MDM Narrative Medical decision making narrative: This appears to be somewhat similar to a cutaneous hemangioma but may also be a basal cell carcinoma.. I do not think this needs antibiotics. I think it needs a dressing on it. Although she is on Plavix is not really bleeding. I have to put pressure on it to get any serosanguineous fluid to come out. There is no pain. There is no fever. I do not think blood work is going to change her evaluation. She has no bony pain and I do not see an indication for x-rays. We will put a dressing on this. But I think this patient is best served by following up with dermatology. I have told the patient that it is exceedingly important she follows up. Even if this is not bothering her, this could be cancer and it needs to be seen and evaluated. Again I do not think it requires antibiotics or other acute treatment. Discharge Plan Triage Chief Complaint: Abscess ED Provider: Jeromy Mai Dx/Rx/DC Orders Clinical Impression: Skin lesion of right lower extremity Instructions: Common Types of Skin Cancer Prescriptions: No Action montelukast 10 mg tablet 10 mg PO QPM rosuvastatin 5 mg tablet 5 mg PO DAILY hydrocodone-acetaminophen 5-325 mg tablet 1 tab PO PRN fluticasone propion-salmeterol 230-21 mcg/actuation HFA aerosol inhaler 2 inh INHALATION BID albuterol sulfate 2.5 MG/3 ML solution for nebulization 2.5 mg inhalation Q4H PRN PRN (Reason: Sob &/Or Wheezing) 0RF clopidogrel 75 MG tablet 75 mg PO DAILY Qty: 90 0RF ipratropium-albuterol 3 ML solution for nebulization 3 ml inhalation Q6H.RT PRN (Reason: Wheezing) Qty: 25 0RF prednisone 20 MG tablet 40 mg PO DAILY Qty: 10 0RF Rx Instructions: With food Primary Care Provider: Mirna Olson Referrals: Mirna Olson MD [Primary Care Provider] - As soon as possible (Contact Dr. Olson about getting into see dermatology as soon as possible.) Disposition Disposition: Home, Self Care
[2022-12-16] MEDS: Gelatin Sponge Absorbable 50cm (1) 1 EACH TOPICAL (17:51)
== END 2022-12-16 17:53 | disposition home or self-care (01) ==
LOC: ED 17:20
PROVIDERS: Emergency Provider Emergency Medicine; PCP Internal Medicine; Visit Provider Emergency Medicine
DX: L98.9 Disorder of the skin and subcutaneous tissue, unspecified (principal); I73.9 Peripheral vascular disease, unspecified; Z79.02 Long term (current) use of antithrombotics/antiplatelets; Z87.891 Personal history of nicotine dependence
CPT/HCPCS: 99282